=== PATIENT | female | born 1985 | race Caucasian/White ===

== ENCOUNTER 2021-03-26 11:10 | Observation (INO) | payer MEDICAID, SELFPAY ==
[2021-03-26] VITALS (7 sets, daily range): BP systolic 98–137; BP diastolic 63–87; PULSE 95–120; RESP 16–18; TEMP 36.6–36.9; O2SAT 96–99; BMI 30.9
--- NOTE | ~2021-03-26 | XR_ITS ---
EXAMINATION: XR CHEST CLINICAL INFORMATION: Chest pain with difficulty breathing COMPARISON: March 15, 2019 TECHNIQUE: AP portable view of the chest was obtained. FINDINGS: No significant abnormality is noted involving the heart, lungs, mediastinum, bony thorax or soft tissues. XR/XR chest 1V IMPRESSION: No acute disease.
--- NOTE | ~2021-03-26 | CT_ITS ---
EXAMINATION: CT ANGIOGRAM OF THE CHEST WITH AND WITHOUT CONTRAST (CT PULMONARY ANGIOGRAM FOR PE) CLINICAL INFORMATION: Chest pain, tachycardia, post J+J vaccine r/o PE COMPARISON: Chest radiograph 03/26/2021 TECHNIQUE: Prior to contrast administration, noncontrast localization images were obtained. Subsequently, multidetector volumetric imaging was performed from the thoracic inlet to below the diaphragms following the administration of 85 mL Omnipaque 350 intravenous contrast. Sagittal, coronal, and MIP oblique sagittal reformatted images were obtained on the CT workstation, uploaded to PACS, and reviewed. This CT examination was performed using dose optimization techniques as appropriate, variously including the following: *Automated exposure control *Adjustment of mA and/or kV according to patient size (this includes techniques or standardized protocols for targeted exams where dose is matched to indication/reason for exam; i.e. extremities or head) *Use of iterative reconstruction technique Total exam dose-length product 288 mGy-cm FINDINGS: QUALITY OF STUDY/CONTRAST BOLUS: Satisfactory. PULMONARY ARTERIES: No central or segmental pulmonary emboli. THORACIC AORTA: No aneurysm or dissection. LUNG: The lungs are clear. There is no pneumothorax, airspace consolidation, or mass. The central airways are clear. No endobronchial lesion or bronchiectasis. PLEURA: No pleural effusion or pleural thickening. MEDIASTINUM: Normal heart size. No pericardial effusion. No hilar or mediastinal lymphadenopathy. No evidence of septal bowing or right heart strain. CHEST WALL/AXILLA: No axillary or internal mammary lymphadenopathy. OSSEOUS STRUCTURES: No acute or suspicious osseous abnormality. UPPER ABDOMEN: Unremarkable. No reflux of contrast into the hepatic veins to suggest elevated right heart pressures. CT/CT angio chest PE protocol IMPRESSION: 1. No pulmonary embolism. No thoracic aortic dissection. 2. Lungs clear. No pneumothorax, infiltrate, or effusion. VTE: negative
--- NOTE | ~2021-03-26 | CT_ITS ---
EXAMINATION: CT ABDOMEN AND PELVIS WITH CONTRAST CLINICAL INFORMATION: Pain. History of multiple intussusceptions COMPARISON: None TECHNIQUE: Multidetector volumetric images were obtained from the superior aspect of the liver through the pubic symphysis following administration 85 mL of Omnipaque 350 intravenous contrast. Sagittal and coronal reformatted images were obtained on the technologist's workstation. Oral contrast: Yes This CT examination was performed using dose optimization techniques as appropriate, variously including the following: *Automated exposure control *Adjustment of mA and/or kV according to patient size (this includes techniques or standardized protocols for targeted exams where dose is matched to indication/reason for exam; i.e. extremities or head) *Use of iterative reconstruction technique DLP: 582 mGy-cm FINDINGS: LUNG BASES: The visualized lung bases are unremarkable. LIVER, GALLBLADDER, AND BILIARY TREE: The liver is normal in size, shape, and attenuation. No focal hepatic lesion or biliary ductal dilatation is present. The gallbladder has been removed. PANCREAS: Unremarkable. SPLEEN: Unremarkable. ADRENAL GLANDS: Unremarkable. KIDNEYS AND URETERS: There is a abnormal rotation of the right kidney with anterior lateral orientation of the renal pelvis. These are otherwise unremarkable. BLADDER: Unremarkable. GASTROINTESTINAL TRACT: There is mild diverticulosis of the colon. Small and large bowel is otherwise unremarkable. No evidence of dissection or obstruction is seen. The appendix is not identified and may been removed. The stomach is unremarkable. ABDOMINAL WALL: No significant hernia is appreciated. LYMPH NODES: Normal. VASCULAR: Unremarkable. PELVIC VISCERA: Unremarkable. OSSEOUS STRUCTURES: Unremarkable. CT/CT abdomen pelvis w IV con IMPRESSION: Diverticulosis of the colon. No evidence of diverticulitis, obstruction or intussusception. Abnormal rotation of the right kidney.
--- NOTE | 2021-03-26 11:24 | ECG_ITS ---
Test Reason : CHEST PAIN Blood Pressure : / mmHG Vent. Rate : 102 BPM Atrial Rate : 102 BPM P-R Int : 150 ms QRS Dur : 074 ms QT Int : 358 ms P-R-T Axes : 047 025 029 degrees QTc Int : 466 ms Sinus tachycardia Otherwise normal ECG When compared with ECG of 15-MAR-2019 18:28, No significant change was found Referred By: Generic ED Physician Electronically Signed By:DAGOBERTO HARO MD
--- NOTE | 2021-03-26 11:39 | ED_ITS ---
HPI - Chest Pain General Chief Complaint: Chest Pain Stated Complaint: Chest painleg pain Time Seen by Provider: 03/26/21 11:39 Source: patient Mode of arrival: ambulatory Limitations: no limitations History of Present Illness HPI narrative: 36 yo female with complicated hx but very convoluted involving anxiety, depression, intussusception of the bowels and possible CAD vs SVT - I cannot get records on her phone hx of all of this back in [place] she states she went to [facility] yesterday and cannot even talk about it that is how terrible it was - records being requested she reports 40lb weight gain, chest pain, not on any medications anymore, states she used to be well controlled with a good pain regimen, patient is difficult to follow at times MD complaint: chest pain and other (abdominal pain) Onset (ago): week(s) (4) Timing of current episode: episodic Prior episodes: Yes Onset: during rest and during exertion Pain location: left chest Pain radiation: neck Severity: moderate Quality: sharp Relieving factors: nothing Exacerbating factors: inspiration and movement Context: other (J+J vaccine) Associated symptoms: nausea and other (abdominal pain, weight gain, constipation) Treatment prior to arrival: none Related Data Home Medications Medication Instructions Recorded Confirmed albuterol sulfate [Ventolin HFA] 1 - 2 puff INHALATION Q4-6H PRN 03/26/21 03/26/21 citalopram 1 tab PO DAILY 03/26/21 03/26/21 clonazepam 0.5 mg PO TID PRN 03/26/21 03/26/21 fluticasone propionate 2 spray INTRANASAL DAILY 03/26/21 03/26/21 ibuprofen 600 mg PO TIDWM 03/26/21 03/26/21 ondansetron HCl [Zofran] 4 mg PO Q6H PRN 03/26/21 03/26/21 pantoprazole [Protonix] 40 mg PO BID@0630,1630 03/26/21 03/26/21 Allergies Allergy/AdvReac Type Severity Reaction Status Date / Time azithromycin [AZITHROMYCIN] Allergy Unknown UNKNOWN Unverified 05/23/20 19:42 Sulfa (Sulfonamide Allergy Unknown UNKNOWN Unverified 05/23/20 19:42 Antibiotics) [SULFA (SULFONAMIDE ANTIBIOTICS)] sulfamethoxazole Allergy Unknown UNKNOWN Unverified 05/23/20 19:42 [From BACTRIM] trimethoprim [From BACTRIM] Allergy Unknown UNKNOWN Unverified 05/23/20 19:42 morphine Allergy Difficulty Verified 03/26/21 11:23 Breathing Review of Systems Review of Systems: Constitutional : No Weight loss, No Fever, No Chills ENT/Mouth : No sore throat, No Rhinorrhea Eyes: No Swelling, No Redness Cardiovascular : pos Chest Pain, pos SOB, NoEdema Respiratory : No Cough, No Sputum, No Wheezing Gastrointestinal : Positive Nausea, Positive Vomiting, no Diarrhea, positive abdominal Pain, No Hematochezia, No Melena Genitourinary : No Dysuria, No Urinary Frequency, No Hematuria, No Urgency Musculoskeletal : No joint pain, No Myalgias, No Joint Swelling Skin : No Skin Lesions, No rash Neuro : No Weakness, No Numbness, No Dizziness, No Headache Psych : No Anxiety/Panic, No Depression Heme/Lymph: No Bruising, No Lymphadenopathy Endocrine : No Polyuria, No Polydipsia All other systems reviewed and are negative. [facility] Past Medical History Attestation statement: The following information was validated with the patient. Medical History Asthma Gastroparesis Hypertension Intussusception Surgical History History of appendectomy History of cholecystectomy Social History Social History (Updated 03/26/21 @ 12:38 by Janette Resendez DO) Use of substances other than those prescribed or required for medical reasons: No Advance Directives: No Advance Directives Information Provided: Yes Patient : No Physical Exam Vital Signs: Vital Signs: Last Vital Signs Temp 98.4 F 03/26/21 12:13 Pulse 102 H 03/26/21 14:49 Resp 16 03/26/21 14:49 BP 137/87 03/26/21 14:49 Pulse Ox 96 03/26/21 14:49 Body Mass Index 30.9 Appearance: Alert. Oriented X3. No acute distress. Anxious Eyes: Pupils equal, round and reactive to light. ENT: Pharynx normal. Neck: Normal inspection. Neck supple. CVS: Normal heart rate and rhythm. Pulses normal. Respiratory: No respiratory distress. Breath sounds normal. Abdomen: Soft and moderate ttp in epigastric area no rebound or guarding Skin: Skin warm and dry. Normal skin color. Normal skin turgor. Extremities: No lower extremity edema. No calf ttp Neuro: Oriented X 3. No motor deficit. No sensory deficit. Course Course Course Narrative: review of medical history of cyrus no CAD history did have intussusception [facility] - ED notes yesterday, keith was throwing herself on the floor, given LR, 2mg ativan, she became aggressive with staff demanding pain medications patient left the ED after very aggressive interaction with staff. trop elevated, infl markers ordered, PO asa ordered, repeatedly asking for pain medications, requesting TALHA for cocaine abuse given troponin, will repeat in 2 hours and consult cardiology infl markers are up could by myocarditis - message sent to Cardiology trop was negative at [facility] yesterday refusing CT scan until she gets more pain medications, at this time her pain is whole body there is no reason she cannot get images obtained to r/o serious pathology she has been playing on her phone in no distress + for amphetamines but I do not see anything on her med rec that would cause this CT scan of abdomen negative, given oral tylenol and oxycodone for body pain - aware since imaging is negative at this time there is no indication for IV dilaudid patient seemed agreeable to this, the pain is all over but she seems okay and is in no distress, refusing oral medications, only asking for IV pain medications Cardiology recommends ECHO in AM - NSAIDs, patient aware and agrees, aware she is likely not going to receive IV dilaudid for body pain while admitted as well, requesting klonopin MDM - Chest Pain MDM Narrative Medical decision making narrative: 36 yo female with complicated hx but very convoluted involving anxiety, depression, intussusception of the bowels and possible CAD vs SVT - I cannot get records on her phone hx of all of this back in [place] she states she went to [facility] yesterday and cannot even talk about it that is how terrible it was - records being requested she reports 40lb weight gain, chest pain, not on any medications anymore, states she used to be well controlled with a good pain regimen, patient is difficult to follow at times given the degree of complaints and convoluted pmh will obtain labs, CT abdomen for mass/obstruction, CTA for PE, given IV ativan for anxiety though she is requesting pain medications as well but cannot take NSAIDs or morphine, dispo per results and findings, also attempting to get prior medical records I did go through her [place] patient portal with her and at no time did she have documentation of CAD or a chest coronary CTA. Lab Data Result diagrams: 03/26/21 11:54 03/26/21 11:54 Labs: Lab Results 03/26/21 03/26/21 03/26/21 Range/Units 11:54 11:54 11:54 WBC 14.2 H (4.8-10.8) X10*3/uL RBC 4.25 (4.20-5.50) X10*6/uL Hgb 12.2 (12.0-16.0) g/dl Hct 37.8 (37-47) % MCV 88.9 (80-98) fL MCH 28.7 (27.0-33.0) pg MCHC 32.3 (31.0-35.0) g/dl RDW 14.4 (11.0-16.0) % Plt Count 423 H (160-400) X10*3/uL MPV 9.1 L (9.4-12.3) fL Immature Gran % (Auto) 0.9 H (0.0-0.4) % Neut % (Auto) 67.6 (45-73) % Lymph % (Auto) 23.5 (20-40) % [place] % (Auto) 6.2 (2-11) % Eos % (Auto) 1.3 (0-4) % Baso % (Auto) 0.5 (0-2) % Lymph # (Auto) 3.4 (1.2-4.9) X10*3/uL [place] # (Auto) 0.9 (0.1-1.2) X10*3/uL Eos # (Auto) 0.2 (0.0-0.4) X10*3/uL Baso # (Auto) 0.1 (0.0-0.2) X10*3/uL Abs Immat Gran (auto) 0.13 H (0.00-0.03) X10*3/uL Absolute Neuts (auto) 9.6 H (2.0-8.3) X10*3/uL Absolute Nucleated RBC 0.000 (0.0-0.012) X10*3/uL Nucleated RBC % (auto) 0.0 (0.0-0.2) /100WBC ESR (0-20) MM/HR D-Dimer NG/ML Sodium 138 (135-145) mmol/L Potassium 4.0 (3.3-5.1) mmol/L Chloride 99 (96-108) mmol/L Carbon Dioxide 29 (22-29) mmol/L Anion Gap 14 (12-20) BUN 8 L (9-16) mg/dL Creatinine 0.85 (0.5-1.4) mg/dL Estim Creat Clear Calc 92.7 Estimated GFR > 60 Random Glucose 95 (60-115) mg/dL Calcium 9.7 (8.4-10.2) mg/dL Magnesium 1.9 (1.6-2.6) mg/dL Total Bilirubin 0.2 (0.0-1.0) mg/dL Direct Bilirubin < 0.2 (0.0-0.5) mg/dL AST 23 (5-31) U/L ALT 27 (0-31) U/L Alkaline Phosphatase 106 (39-117) U/L Total Creatine Kinase 381 H (26-140) U/L Troponin I High Sens 98.9 H* (<3.5-17.0) ng/L C-Reactive Protein 1.72 H (< or = 0.50) mg/dL Total Protein 7.6 (6.5-8.0) g/dL Albumin 4.2 (3.5-5.0) g/dL Lipase 23 (8-78) U/L Urine Color Urine Appearance Urine pH (5.0-8.0) Ur Specific Brimson (1.005-1.025) Urine Protein (NEG-TRACE) MG/DL Urine Glucose (UA) (NEG) MG/DL Urine Ketones (NEG) MG/DL Urine Blood (NEG) Urine Nitrite (NEG) Ur Leukocyte Esterase (NEG) Urine Test (NEGATIVE) Urine Opiates Screen (Not Detect) Ur Barbiturates Screen (Not Detect) Ur Phencyclidine Scrn (Not Detect) Ur Amphetamines Screen (Not Detect) U Benzodiazepines Scrn (Not Detect) Urine Cocaine Screen (Not Detect) U Marijuana (THC) Screen (Not Detect) COVID-19 (MARILIN) (Negative) COVID-19 Clin Com 03/26/21 03/26/21 03/26/21 Range/Units 11:54 11:54 13:30 WBC (4.8-10.8) X10*3/uL RBC (4.20-5.50) X10*6/uL Hgb (12.0-16.0) g/dl Hct (37-47) % MCV (80-98) fL MCH (27.0-33.0) pg MCHC (31.0-35.0) g/dl RDW (11.0-16.0) % Plt Count (160-400) X10*3/uL MPV (9.4-12.3) fL Immature Gran % (Auto) (0.0-0.4) % Neut % (Auto) (45-73) % Lymph % (Auto) (20-40) % [place] % (Auto) (2-11) % Eos % (Auto) (0-4) % Baso % (Auto) (0-2) % Lymph # (Auto) (1.2-4.9) X10*3/uL [place] # (Auto) (0.1-1.2) X10*3/uL Eos # (Auto) (0.0-0.4) X10*3/uL Baso # (Auto) (0.0-0.2) X10*3/uL Abs Immat Gran (auto) (0.00-0.03) X10*3/uL Absolute Neuts (auto) (2.0-8.3) X10*3/uL Absolute Nucleated RBC (0.0-0.012) X10*3/uL Nucleated RBC % (auto) (0.0-0.2) /100WBC ESR 25 H (0-20) MM/HR D-Dimer < 200 NG/ML Sodium (135-145) mmol/L Potassium (3.3-5.1) mmol/L Chloride (96-108) mmol/L Carbon Dioxide (22-29) mmol/L Anion Gap (12-20) BUN (9-16) mg/dL Creatinine (0.5-1.4) mg/dL Estim Creat Clear Calc Estimated GFR Random Glucose (60-115) mg/dL Calcium (8.4-10.2) mg/dL Magnesium (1.6-2.6) mg/dL Total Bilirubin (0.0-1.0) mg/dL Direct Bilirubin (0.0-0.5) mg/dL AST (5-31) U/L ALT (0-31) U/L Alkaline Phosphatase (39-117) U/L Total Creatine Kinase (26-140) U/L Troponin I High Sens (<3.5-17.0) ng/L C-Reactive Protein (< or = 0.50) mg/dL Total Protein (6.5-8.0) g/dL Albumin (3.5-5.0) g/dL Lipase (8-78) U/L Urine Color YELLOW Urine Appearance CLEAR Urine pH 6.5 (5.0-8.0) Ur Specific Brimson <= 1.005 (1.005-1.025) Urine Protein NEG (NEG-TRACE) MG/DL Urine Glucose (UA) NEG (NEG) MG/DL Urine Ketones NEG (NEG) MG/DL Urine Blood NEG (NEG) Urine Nitrite NEG (NEG) Ur Leukocyte Esterase NEG (NEG) Urine Test (NEGATIVE) Urine Opiates Screen (Not Detect) Ur Barbiturates Screen (Not Detect) Ur Phencyclidine Scrn (Not Detect) Ur Amphetamines Screen (Not Detect) U Benzodiazepines Scrn (Not Detect) Urine Cocaine Screen (Not Detect) U Marijuana (THC) Screen (Not Detect) COVID-19 (MARILIN) (Negative) COVID-19 Clin Com 03/26/21 03/26/21 03/26/21 Range/Units 13:31 13:31 14:45 WBC (4.8-10.8) X10*3/uL RBC (4.20-5.50) X10*6/uL Hgb (12.0-16.0) g/dl Hct (37-47) % MCV (80-98) fL MCH (27.0-33.0) pg MCHC (31.0-35.0) g/dl RDW (11.0-16.0) % Plt Count (160-400) X10*3/uL MPV (9.4-12.3) fL Immature Gran % (Auto) (0.0-0.4) % Neut % (Auto) (45-73) % Lymph % (Auto) (20-40) % [place] % (Auto) (2-11) % Eos % (Auto) (0-4) % Baso % (Auto) (0-2) % Lymph # (Auto) (1.2-4.9) X10*3/uL [place] # (Auto) (0.1-1.2) X10*3/uL Eos # (Auto) (0.0-0.4) X10*3/uL Baso # (Auto) (0.0-0.2) X10*3/uL Abs Immat Gran (auto) (0.00-0.03) X10*3/uL Absolute Neuts (auto) (2.0-8.3) X10*3/uL Absolute Nucleated RBC (0.0-0.012) X10*3/uL Nucleated RBC % (auto) (0.0-0.2) /100WBC ESR (0-20) MM/HR D-Dimer NG/ML Sodium (135-145) mmol/L Potassium (3.3-5.1) mmol/L Chloride (96-108) mmol/L Carbon Dioxide (22-29) mmol/L Anion Gap (12-20) BUN (9-16) mg/dL Creatinine (0.5-1.4) mg/dL Estim Creat Clear Calc Estimated GFR Random Glucose (60-115) mg/dL Calcium (8.4-10.2) mg/dL Magnesium (1.6-2.6) mg/dL Total Bilirubin (0.0-1.0) mg/dL Direct Bilirubin (0.0-0.5) mg/dL AST (5-31) U/L ALT (0-31) U/L Alkaline Phosphatase (39-117) U/L Total Creatine Kinase (26-140) U/L Troponin I High Sens 105.0 H* (<3.5-17.0) ng/L C-Reactive Protein (< or = 0.50) mg/dL Total Protein (6.5-8.0) g/dL Albumin (3.5-5.0) g/dL Lipase (8-78) U/L Urine Color Urine Appearance Urine pH (5.0-8.0) Ur Specific Brimson (1.005-1.025) Urine Protein (NEG-TRACE) MG/DL Urine Glucose (UA) (NEG) MG/DL Urine Ketones (NEG) MG/DL Urine Blood (NEG) Urine Nitrite (NEG) Ur Leukocyte Esterase (NEG) Urine Test NEGATIVE (NEGATIVE) Urine Opiates Screen Not Detected (Not Detect) Ur Barbiturates Screen Not Detected (Not Detect) Ur Phencyclidine Scrn Not Detected (Not Detect) Ur Amphetamines Screen POSITIVE H (Not Detect) U Benzodiazepines Scrn Not Detected (Not Detect) Urine Cocaine Screen Not Detected (Not Detect) U Marijuana (THC) Screen POSITIVE H (Not Detect) COVID-19 (MARILIN) (Negative) COVID-19 Clin Com 03/26/21 Range/Units 14:45 WBC (4.8-10.8) X10*3/uL RBC (4.20-5.50) X10*6/uL Hgb (12.0-16.0) g/dl Hct (37-47) % MCV (80-98) fL MCH (27.0-33.0) pg MCHC (31.0-35.0) g/dl RDW (11.0-16.0) % Plt Count (160-400) X10*3/uL MPV (9.4-12.3) fL Immature Gran % (Auto) (0.0-0.4) % Neut % (Auto) (45-73) % Lymph % (Auto) (20-40) % [place] % (Auto) (2-11) % Eos % (Auto) (0-4) % Baso % (Auto) (0-2) % Lymph # (Auto) (1.2-4.9) X10*3/uL [place] # (Auto) (0.1-1.2) X10*3/uL Eos # (Auto) (0.0-0.4) X10*3/uL Baso # (Auto) (0.0-0.2) X10*3/uL Abs Immat Gran (auto) (0.00-0.03) X10*3/uL Absolute Neuts (auto) (2.0-8.3) X10*3/uL Absolute Nucleated RBC (0.0-0.012) X10*3/uL Nucleated RBC % (auto) (0.0-0.2) /100WBC ESR (0-20) MM/HR D-Dimer NG/ML Sodium (135-145) mmol/L Potassium (3.3-5.1) mmol/L Chloride (96-108) mmol/L Carbon Dioxide (22-29) mmol/L Anion Gap (12-20) BUN (9-16) mg/dL Creatinine (0.5-1.4) mg/dL Estim Creat Clear Calc Estimated GFR Random Glucose (60-115) mg/dL Calcium (8.4-10.2) mg/dL Magnesium (1.6-2.6) mg/dL Total Bilirubin (0.0-1.0) mg/dL Direct Bilirubin (0.0-0.5) mg/dL AST (5-31) U/L ALT (0-31) U/L Alkaline Phosphatase (39-117) U/L Total Creatine Kinase (26-140) U/L Troponin I High Sens (<3.5-17.0) ng/L C-Reactive Protein (< or = 0.50) mg/dL Total Protein (6.5-8.0) g/dL Albumin (3.5-5.0) g/dL Lipase (8-78) U/L Urine Color Urine Appearance Urine pH (5.0-8.0) Ur Specific Brimson (1.005-1.025) Urine Protein (NEG-TRACE) MG/DL Urine Glucose (UA) (NEG) MG/DL Urine Ketones (NEG) MG/DL Urine Blood (NEG) Urine Nitrite (NEG) Ur Leukocyte Esterase (NEG) Urine Test (NEGATIVE) Urine Opiates Screen (Not Detect) Ur Barbiturates Screen (Not Detect) Ur Phencyclidine Scrn (Not Detect) Ur Amphetamines Screen (Not Detect) U Benzodiazepines Scrn (Not Detect) Urine Cocaine Screen (Not Detect) U Marijuana (THC) Screen (Not Detect) COVID-19 (MARILIN) Negative (Negative) COVID-19 Clin Com See Note Discharge Plan Discharge Clinical Impression: CRP elevated, Myalgia, Elevated troponin Patient Disposition: Admitted As Inpatient
[2021-03-26 12:02] LABS: MANUAL DIFF FLAG NO
[2021-03-26 12:03] LABS: Basophils Absolute Auto 0.1 X10*3/uL (0.0-0.2); Basophils Percent Auto 0.5 % (0-2); Eosinophils Absolute Auto 0.2 X10*3/uL (0.0-0.4); Eosinophils Percent Auto 1.3 % (0-4); Hematocrit 37.8 % (37-47); Hemoglobin 12.2 g/dl (12.0-16.0); Imm Gran Abs Auto 0.13 X10*3/uL (0.00-0.03); Imm Gran Pct Auto 0.9 % (0.0-0.4); Lymphocytes Absolute Auto 3.4 X10*3/uL (1.2-4.9); Lymphocytes Percent Auto 23.5 % (20-40); Mean Corpuscular HGB Conc 32.3 g/dl (31.0-35.0); Mean Corpuscular Hemoglobin 28.7 pg (27.0-33.0); Mean Corpuscular Volume 88.9 fL (80-98); Mean Platelet Volume 9.1 fL (9.4-12.3); Monocytes Absolute Auto 0.9 X10*3/uL (0.1-1.2); Monocytes Percent Auto 6.2 % (2-11); Neutrophils Absolute Auto 9.6 X10*3/uL (2.0-8.3); Neutrophils Percent Auto 67.6 % (45-73); Platelet Count 423 X10*3/uL (160-400); Red Blood Count 4.25 X10*6/uL (4.20-5.50); Red Cell Distribution Width 14.4 % (11.0-16.0); White Blood Count 14.2 X10*3/uL (4.8-10.8)
[2021-03-26 12:12] LABS: D Dimer < 200 NG/ML
[2021-03-26] MEDS: LORazepam 2 MG/ML VIAL IVPUSH (12:18)
[2021-03-26] MEDS: 0.9 % Sodium Chloride 1,000 ML 999 ML IVCONT (12:18)
[2021-03-26] MEDS: ondansetron HCL 4 MG/2 ML VIAL IVPUSH (12:25)
[2021-03-26 12:33] LABS: Anion Gap 14 (12-20); Blood Urea Nitrogen 8 mg/dL (9-16); Calcium 9.7 mg/dL (8.4-10.2); Carbon Dioxide 29 mmol/L (22-29); Chloride 99 mmol/L (96-108); Creatinine Clr Calc Pharmacy 92.7; Estimated Glomerular Filt Rate > 60; Glucose Random 95 mg/dL (60-115); Magnesium 1.9 mg/dL (1.6-2.6); Sodium 138 mmol/L (135-145)
[2021-03-26 13:05] LABS: Alanine Aminotransferase 27 U/L (0-31); Albumin Level 4.2 g/dL (3.5-5.0); Alkaline Phosphatase 106 U/L (39-117); Aspartate Amino Transferase 23 U/L (5-31); Bilirubin Direct < 0.2 mg/dL (0.0-0.5); Bilirubin Total 0.2 mg/dL (0.0-1.0); Lipase 23 U/L (8-78); Total Protein 7.6 g/dL (6.5-8.0)
[2021-03-26 13:08] LABS: Troponin-I High Sensitivity 98.9 ng/L (<3.5-17.0)
[2021-03-26] MEDS: Aspirin 81 MG TAB.CHEW 162 MG PO (13:27)
[2021-03-26] MEDS: HYDROmorphone HCl 0.5 MG/0.5 ML SYRINGE IVPUSH (13:32)
[2021-03-26 13:37] LABS: C Reactive Protein 1.72 mg/dL (< or = 0.50)
[2021-03-26 13:47] LABS: Glucose Urine UA NEG (NEG); Leukocyte Esterase Urine NEG (NEG); Nitrite Urine NEG (NEG); PH 6.5 (5.0-8.0); Specific Gravity - Urine <= 1.005 (1.005-1.025); Urine Blood NEG (NEG); Urine Ketones NEG (NEG); Urine Protein NEG (NEG-TRACE)
[2021-03-26 14:10] LABS: Erythrocyte Sedimentation Rate 25 MM/HR (0-20)
[2021-03-26 14:13] LABS: Amphetamine Screen Urine POSITIVE (Not Detect); Barbiturates, Urine Not Detected (Not Detect); Benzodiazepines Screen Urine Not Detected (Not Detect); Cannabinoid Screen Urine POSITIVE (Not Detect); Cocaine Screen Urine Not Detected (Not Detect); Opiate Screen Urine Not Detected (Not Detect); Phencyclidine Screen Urine Not Detected (Not Detect)
[2021-03-26] MEDS: iohexoL 350 MG/ML 100 ML INFUS..BTL IV (14:49)
--- NOTE | 2021-03-26 15:01 | PHA.MEDREC ---
Pharmacy Consult ? Medication Reconciliation Pharmacy has completed the medication reconciliation. Most of the meds reported by the PT were prescribed prior to her moving to this area.
[2021-03-26] MEDS: Acetaminophen 325 MG TABLET 650 MG PO (15:22)
[2021-03-26] MEDS: oxyCODONE HCl Immed Release 5 MG TABLET 10 MG PO (15:22)
[2021-03-26 15:24] LABS: Appearance Urine CLEAR; Color Urine YELLOW
[2021-03-26 15:32] LABS: COVID-19 Test Negative (Negative); IDNOW Serial# 08D9AD1C
[2021-03-26 15:38] LABS: UPreg QC Valid YES; Urine Pregnancy NEGATIVE (NEGATIVE)
--- NOTE | 2021-03-26 16:31 | P.HPHOSP_ITS ---
History of Present Illness Date of Service: 03/26/21 history obtained from record reviewed from [facility], speaking to patient and discussin with ED provider. According to the record she presented to [facility] this morning with the following naration 36-year-old female with history of gastroparesis, prior diverticulitis, 2 prior episodes of intussusception status post diagnostic laparoscopy, anxiety, depression presenting to the ED with multiple complaints. States she got the J&J vaccine approximately 7 weeks ago and since then has had multiple problems including a 40 pound weight gain, constant nausea and vomiting, a constant fee ling as though her legs are going to explode that worsens when she walks, worsening back pain that requires people to pull the knots out , constant sweating anytime she tries to do anything and dehydration. Patient is significantly tearful during interview and stating multiple times that she does not want to be here but her children made her come. Is also endorsing continued shortness of breath as well as chest pressure and at times feels as though she gets numbness and tingling in both upper extremities into her fingers there is associated with her shaking all over. She denies fevers, cough, headache, vision changes. No recent sick contacts, immobilization, surgery or travel. While wor k up was underwent in ED at [facility], she became increasing agitated, yelling and screaming and demanding pain medication and ultimately left agains medical advise and presents to our ED with similar story that she has been having body ache, back and feeling that her legs want got give oout.. She has gained significantly weight recently, that she feels short of breath. WBC is 14, CRP is high, along with ESR. Highly sensitive troponin I is 100 and repeat unchanged, ECG shows mild sinus tachyardia otherwise, unremarkable, CXR, CT of chest and CT of abdomen unremarkable. She is been observed due to elevated troponin. . Review of Systems Review of Systems: Gen: no fever Resp: + sob, no cough CV: no chest, no LANG, no leg edema GI: No n/v, no abd pain Neuro: No confusion Back pain, Yes all other systems are reviewed and are negative [facility] Medical History Asthma Gastroparesis Hypertension Intussusception Migraine headache Surgical History History of appendectomy History of cholecystectomy Social History Household Members: Children Housing: Other Housing Other:: intermediate Do you presently have visiting nurse or other home services: No Patient Tobacco Use Status: Current everyday Tobacco user Tobacco use type: Cigarette Cigarettes Per Day: 10 Substance Use Type: Marijuana service: No Current occupational status: employed Meds Allergies Allergy/AdvReac Type Severity Reaction Status Date / Time azithromycin [AZITHROMYCIN] Allergy Unknown UNKNOWN Unverified 05/23/20 19:42 Sulfa (Sulfonamide Allergy Unknown UNKNOWN Unverified 05/23/20 19:42 Antibiotics) [SULFA (SULFONAMIDE ANTIBIOTICS)] sulfamethoxazole Allergy Unknown UNKNOWN Unverified 05/23/20 19:42 [From BACTRIM] trimethoprim [From BACTRIM] Allergy Unknown UNKNOWN Unverified 05/23/20 19:42 morphine Allergy Difficulty Verified 03/26/21 11:23 Breathing Active Medications: Current Medications Generic Name Dose Route Start Last Admin Trade Name Freq PRN Reason Stop Dose Admin Pharmacy Consult 1 each 03/26/21 14:16 Consult Rx Perform Med Rec MISCELLANE ONCE PRN Consult order Home Medications Medication Instructions Recorded Confirmed Last Taken Type albuterol sulfate [Ventolin HFA] 1 - 2 puff INHALATION Q4-6H PRN 03/26/21 03/26/21 Unknown History citalopram 1 tab PO DAILY 03/26/21 03/26/21 03/26/21 History clonazepam 0.5 mg PO TID PRN 03/26/21 03/26/21 Unknown History fluticasone propionate 2 spray INTRANASAL DAILY 03/26/21 03/26/21 Unknown History ibuprofen 600 mg PO TIDWM 03/26/21 03/26/21 03/26/21 History ondansetron HCl [Zofran] 4 mg PO Q6H PRN 03/26/21 03/26/21 Unknown History pantoprazole [Protonix] 40 mg PO BID@0630,1630 03/26/21 03/26/21 03/26/21 History Physical Exam Vital Signs and Narrative: Vital Signs: Last Vital Signs Temp 98.4 F 03/26/21 12:13 Pulse 102 H 03/26/21 14:49 Resp 16 03/26/21 14:49 BP 137/87 03/26/21 14:49 Pulse Ox 96 03/26/21 14:49 Body Mass Index 30.9 Const: Other: Constitutional Awake and Alert, No apparent distress HEENT no lymphadenopathy Neck Supple, No lymphadenopathy Cardiovascular RRR, No M/R/G, S1 S2, No S3 S4, No pedal edema Respiratory Lungs clear, No respiratory distress Gastrointestinal Non tender, Non-distended Skin No rash Neurological Alert & oriented x3 Psychological Appropriate affect, no weakness in the limbs Results Labs CBC and Chem 7: 03/27/21 09:07 03/26/21 11:54 Labs: Laboratory Results - last 24 hr 03/26/21 03/26/21 03/26/21 11:54 11:54 11:54 MCV 88.9 MCH 28.7 MCHC 32.3 RDW 14.4 Plt Count 423 H MPV 9.1 L Immature Gran % (Auto) 0.9 H Neut % (Auto) 67.6 Lymph % (Auto) 23.5 [place] % (Auto) 6.2 Eos % (Auto) 1.3 Baso % (Auto) 0.5 Lymph # (Auto) 3.4 [place] # (Auto) 0.9 Eos # (Auto) 0.2 Baso # (Auto) 0.1 Abs Immat Gran (auto) 0.13 H Absolute Neuts (auto) 9.6 H Absolute Nucleated RBC 0.000 Nucleated RBC % (auto) 0.0 ESR D-Dimer Anion Gap 14 Estim Creat Clear Calc 92.7 Estimated GFR > 60 Random Glucose 95 Calcium 9.7 Magnesium 1.9 Total Bilirubin 0.2 Direct Bilirubin < 0.2 AST 23 ALT 27 Alkaline Phosphatase 106 Total Creatine Kinase 381 H Troponin I High Sens 98.9 H* C-Reactive Protein 1.72 H Total Protein 7.6 Albumin 4.2 Lipase 23 Urine Color Urine Appearance Urine pH Ur Specific [place] Urine Protein Urine Glucose (UA) Urine Ketones Urine Blood Urine Nitrite Ur Leukocyte Esterase Urine Test Urine Opiates Screen Ur Barbiturates Screen Ur Phencyclidine Scrn Ur Amphetamines Screen U Benzodiazepines Scrn Urine Cocaine Screen U Marijuana (THC) Screen COVID-19 (MARILIN) COVID-19 Clin Com 03/26/21 03/26/21 03/26/21 11:54 11:54 13:30 MCV MCH MCHC RDW Plt Count MPV Immature Gran % (Auto) Neut % (Auto) Lymph % (Auto) [place] % (Auto) Eos % (Auto) Baso % (Auto) Lymph # (Auto) [place] # (Auto) Eos # (Auto) Baso # (Auto) Abs Immat Gran (auto) Absolute Neuts (auto) Absolute Nucleated RBC Nucleated RBC % (auto) ESR 25 H D-Dimer < 200 Anion Gap Estim Creat Clear Calc Estimated GFR Random Glucose Calcium Magnesium Total Bilirubin Direct Bilirubin AST ALT Alkaline Phosphatase Total Creatine Kinase Troponin I High Sens C-Reactive Protein Total Protein Albumin Lipase Urine Color YELLOW Urine Appearance CLEAR Urine pH 6.5 Ur Specific [place] <= 1.005 Urine Protein NEG Urine Glucose (UA) NEG Urine Ketones NEG Urine Blood NEG Urine Nitrite NEG Ur Leukocyte Esterase NEG Urine Test Urine Opiates Screen Ur Barbiturates Screen Ur Phencyclidine Scrn Ur Amphetamines Screen U Benzodiazepines Scrn Urine Cocaine Screen U Marijuana (THC) Screen COVID-19 (MARILIN) COVID-Instant AV 03/26/21 03/26/21 03/26/21 13:31 13:31 14:45 MCV MCH MCHC RDW Plt Count MPV Immature Gran % (Auto) Neut % (Auto) Lymph % (Auto) [place] % (Auto) Eos % (Auto) Baso % (Auto) Lymph # (Auto) [place] # (Auto) Eos # (Auto) Baso # (Auto) Abs Immat Gran (auto) Absolute Neuts (auto) Absolute Nucleated RBC Nucleated RBC % (auto) ESR D-Dimer Anion Gap Estim Creat Clear Calc Estimated GFR Random Glucose Calcium Magnesium Total Bilirubin Direct Bilirubin AST ALT Alkaline Phosphatase Total Creatine Kinase Troponin I High Sens 105.0 H* C-Reactive Protein Total Protein Albumin Lipase Urine Color Urine Appearance Urine pH Ur Specific [place] Urine Protein Urine Glucose (UA) Urine Ketones Urine Blood Urine Nitrite Ur Leukocyte Esterase Urine Test NEGATIVE Urine Opiates Screen Not Detected Ur Barbiturates Screen Not Detected Ur Phencyclidine Scrn Not Detected Ur Amphetamines Screen POSITIVE H U Benzodiazepines Scrn Not Detected Urine Cocaine Screen Not Detected U Marijuana (THC) Screen POSITIVE H COVID-19 (MARILIN) COVID-19 [facility] Com 03/26/21 14:45 MCV MCH MCHC RDW Plt Count MPV Immature Gran % (Auto) Neut % (Auto) Lymph % (Auto) [place] % (Auto) Eos % (Auto) Baso % (Auto) Lymph # (Auto) [place] # (Auto) Eos # (Auto) Baso # (Auto) Abs Immat Gran (auto) Absolute Neuts (auto) Absolute Nucleated RBC Nucleated RBC % (auto) ESR D-Dimer Anion Gap Estim Creat Clear Calc Estimated GFR Random Glucose Calcium Magnesium Total Bilirubin Direct Bilirubin AST ALT Alkaline Phosphatase Total Creatine Kinase Troponin I High Sens C-Reactive Protein Total Protein Albumin Lipase Urine Color Urine Appearance Urine pH Ur Specific [place] Urine Protein Urine Glucose (UA) Urine Ketones Urine Blood Urine Nitrite Ur Leukocyte Esterase Urine Test Urine Opiates Screen Ur Barbiturates Screen Ur Phencyclidine Scrn Ur Amphetamines Screen U Benzodiazepines Scrn Urine Cocaine Screen U Marijuana (THC) Screen COVID-19 (MARILIN) Negative COVID-19 Clin Com See Note Imaging Radiologist's Impressions: Impressions Chest X-Ray 03/26/21 11:24 IMPRESSION: No acute disease. Abdomen/Pelvis CT 03/26/21 12:09 IMPRESSION: Diverticulosis of the colon. No evidence of diverticulitis, obstruction or intussusception. Abnormal rotation of the right kidney. Chest CTA 03/26/21 12:09 IMPRESSION: 1. No pulmonary embolism. No thoracic aortic dissection. 2. Lungs clear. No pneumothorax, infiltrate, or effusion. VTE: negative Assessment and Plan (1) CRP elevated: Status: Acute (2) Elevated troponin: Status: Acute 36 year old female with non-specicif symptoms of diffuse myalgia associated with elevate CRP, ESR and slight increase in troponin I, also c/o back with legs given out plan /recommend Admit for further investigation, hydrate, repeat troponin I, her presentation seem like viral syndrome causing myalgia, CPK is not very high, there are no sings of infection, CXR, CT chest and abdomen Ok . Repeat troponin I, Echo tomorrow, cardiology consult in AM. Quality Stroke Does the patient have a stroke diagnosis?: No VTE Prior VTE?: No VTE Risk Level:: Medical - moderate - high VTE Device Contraindication: N/A - Device Ordered VTE Drug Contraindication: N/A - Med Ordered
[2021-03-26] MEDS: clonazePAM 1 MG TABLET PO (16:41)
[2021-03-26] MEDS: Dextrose 5 % and 0.45 % NaCl 1,000 ML 100 ML IVCONT (18:17)
[2021-03-26] MEDS: oxyCODONE HCl Immed Release 5 MG TABLET PO (20:43)
--- NOTE | 2021-03-26 22:02 | MHC.CM.PN ---
Met with patient. Admitted to observation. Bed assignment pending. Pt has Medicaid insurance. Pt has 3 children. 19 year old is caring for siblings. Pt lives with children. Has no DME and no services. D/C plan is home without services. Pt to arrange transportation home. CM to follow for d/c needs.
--- NOTE | 2021-03-27 | ECG_ITS ---
Test Reason : CP Blood Pressure : / mmHG Vent. Rate : 114 BPM Atrial Rate : 114 BPM P-R Int : 142 ms QRS Dur : 078 ms QT Int : 340 ms P-R-T Axes : 052 047 031 degrees QTc Int : 468 ms Sinus tachycardia Otherwise normal ECG When compared with ECG of 26-MAR-2021 12:12, T wave amplitude has increased in Anterior leads Referred By: Nestor Tillman Electronically Signed By:DAGOBERTO HARO MD
[2021-03-27 01:08] VITALS: BP 151/98; PULSE 107; RESP 24; O2SAT 98
--- NOTE | 2021-03-27 01:08 | P.EN_ITS ---
Event Note Date of Service: 03/27/21 Event Note: Chest pain: Around 1:00 a.m. on 03/27/2021; patient had an episode of chest pain; patient took some comfortable; patient also noted to be very anxious. Given a dose of Ativan. EKG was nonischemic. Ordered repeat troponin; prior troponins are elevated at 105; patient has echocardiogram and cardiology consult already in place. Given her presentation, elevated CRP, high troponins, chest pain, body aches- concern for possible viral syndrome and myocarditis. Will continue to monitor on telemetry.
[2021-03-27] MEDS: LORazepam 0.5 MG TABLET PO (01:28)
--- NOTE | 2021-03-27 01:33 | PC.NURSE ---
THIS RN TO PTS BEDSIDE WHEN PT WAS HEARD YELLING AT THE PRIMARY NURSE TAKING CARE OF HER. PT WAS FOUND TO BE VERY ANXIOUS, STATING SHE WAS COVERED IN SWEAT BUT HER HAIR APPEARS TO BE WET THROUGHOUT IF SHE WET IT IN THE BATHROOM. PT IS UPSET OVER NOT BEING GIVEN MEDICATION FOR ANXIETY. PT WAS BEING EXPLAINED TO THE PATIENT THAT THIS WAS NOT ORDERED. BUT WAS VERY VERBALLY ABUSIVE/ACCUSATORY TO PRIMARY NURSE. PT REFUSING TO WEAR GOWN, INSTEAD WRAPPING IT AROUND HER LIKE A TOWEL. PT HAD MULTIPLE COMPLAINTS ABOUT HER CARE STATING THAT SHE COULD ONLY TAKE HER PAIN MEDS AND ATIVAN IV BECAUSE OTHERWISE HER BODY DOESN'T DIGEST THE MEDS THEY COME OUT WHOLE IN MY POOP
[2021-03-27 02:19] LABS: Troponin-I High Sensitivity 38.2 ng/L (<3.5-17.0)
[2021-03-27] MEDS: oxyCODONE HCl Immed Release 5 MG TABLET PO ×3 (03:26→14:13)
[2021-03-27] MEDS: clonazePAM 0.5 MG TABLET PO ×2 (03:27→08:33)
[2021-03-27] MEDS: Dextrose 5 % and 0.45 % NaCl 1,000 ML 100 ML IVCONT ×2 (03:30→11:39)
[2021-03-27 04:00] VITALS: BP 97/61; PULSE 84; RESP 16; O2SAT 96
[2021-03-27] MEDS: Acetaminophen 325 MG TABLET 650 MG PO (07:44)
--- NOTE | 2021-03-27 07:46 | PC.NURSE ---
attempted to call report
[2021-03-27 08:00] VITALS: BP 109/68; PULSE 81; RESP 17; TEMP 36; O2SAT 96
--- NOTE | 2021-03-27 08:30 | CA_ITS ---
Transthoracic Echocardiogram Patient (Last, First, Middle): Tamanna Funez, Gender: Female Date of : 1985 Age: 36 Procedure Date: 03/27/2021 Procedure Type: Transthoracic Echocardiogram Location: S3E Height: 162.56 cm Weight: 81.65 kg BSA: 1.87 m2 Heart Rate: bpm BP: 97 / 61 mmHg Workday Director: KATHRYN/DESIRAE Referring MD: Tristen Brenner MD Managing Broker: Mohit Harrison MD Symptoms: shortness of breath, high troponin Study Quality: Fair ECG Rhythm: Sinus Conclusions: - Essentially normal study Findings Left Ventricle Normal left ventricular size, thickness, and systolic function. The visually estimated ejection fraction is between 55-60%. Diastolic function is normal for age. Right Ventricle Normal right ventricular cavity size and systolic function. Atria Both atria are normal in size. There is no evidence of interatrial shunt. Aortic Valve Normal aortic valve structure and function. There is no aortic valve stenosis. There is no aortic valve regurgitation. Mitral Valve Normal mitral valve structure and function. There is trace mitral valve regurgitation. There is no mitral valve stenosis. Pulmonic Valve The pulmonic valve is likely normal. Tricuspid Valve Normal tricuspid valve structure. There is trace tricuspid valve regurgitation. The right ventricular systolic pressure is normal. The right ventricular systolic pressure is 31 mmHg. Normal right atrial pressure. There is no evidence of pulmonary hypertension. Great Vessels All visible segments of the aorta are normal in size. The pulmonary artery was not well visualized. Venous The inferior vena cava is normal in size and collapses greater than 50% with inspiration. Pericardium/Pleural There is no evidence of pericardial effusion. Prior Study Comparison No prior study available for comparison. Measurements 2D Linear Measurements IVSd: 1.02 0.6-0.9/0.6-1.0 cm LVIDd: 4.45 3.9-5.3/4.2-5.9 cm LVIDd Index: 2.38 2.4-3.2/2.2-3.1 cm/m2 LVIDs: 2.90 2.0-3.6 cm LVPWd: 1.04 0.7-1.1 cm Ao Root: 2.70 2.1-3.5 cm LA Diam: 4.10 2.7-3.8/3.0-4.0 cm LAIDs Index: 2.19 1.5-2.3 cm/m2 LV Mass: 195.28 67-162/88-224 g LV Mass Index: 104.43 43-95/49-115 g/m2 LVOT Diam: 2.00 3.0+(-)1.3 cm 2D Systolic Function EF 4C: 52.90 >55% EF 2C: 55.50 >55% EF BiP: 55.50 >55% Mitral Valve MV Pk E: 0.98 MV PK A: 0.93 MV Decel Time: 256.00 E/A: 1.10 E'Lateral: 6.31 E'Medial: 7.83 E/E' Med: 12.50 E/E' Lat: 15.50 PHT: 75.00 MVA PHT: 2.93 Decel [place]: 3.83 Aortic Valve AoV Pk Garrett: 1.69 AoV Mn Garrett: 1.10 AoV VTI: 0.36 AoV Pk Grad: 11.00 Aov Mn Grad: 6.00 TETO Cont.VTI: 2.03 LVOT LVOT Pk Garrett: 1.06 LVOT Mn Garrett: 0.74 LVOT VTI: 0.23 LVOT Pk Grad: 4.00 LVOT Mn Grad: 3.00 LVOT Diam: 2.00 LVOT Area: 3.14 Diastolic Function MV Pk E: 0.98 MV Pk A: 0.93 E/A: 1.10 E'Medial: 7.83 E/E' Med: 12.50 E' Laterial: 6.31 E/E' Lat: 15.50 Tricuspid Valve TR Pk Garrett: 2.65 TR Pk Grad: 28.00 RA Press: 3.00 RVSP: 31.00 Great Vessels Aorta Ao Root-2D: 2.70 2.0-3.7 cm Ao Asc: 3.00 2.1-3.4 cm Ao Arch: 2.90 Updated in Other Vendor System with Status of Final Mohit Harrison MD electronically signed on 03/27/2021 11:12:39 AM with status of Final
[2021-03-27 09:23] LABS: Hematocrit 34.7 % (37-47); Hemoglobin 11.2 g/dl (12.0-16.0); Mean Corpuscular HGB Conc 32.3 g/dl (31.0-35.0); Mean Corpuscular Hemoglobin 29.2 pg (27.0-33.0); Mean Corpuscular Volume 90.6 fL (80-98); Mean Platelet Volume 9.1 fL (9.4-12.3); Platelet Count 316 X10*3/uL (160-400); Red Blood Count 3.83 X10*6/uL (4.20-5.50); Red Cell Distribution Width 14.3 % (11.0-16.0); White Blood Count 10.1 X10*3/uL (4.8-10.8)
[2021-03-27 09:53] LABS: Troponin-I High Sensitivity 22.5 ng/L (<3.5-17.0)
--- NOTE | 2021-03-27 11:03 | PM.CNCAR ---
History of Present Illness History of Present Illness Date of Service: 03/27/21 Requesting physician: Tristen Brenner Consult reason: troponin elevation Chief complaint: Elevated troponin Narrative: I was requested to see Tamanna in cardiology consultation today for elevated troponin. She is a poor historian, says moved from [place] about a year and half ago and has not established with a primary care physician. She says she has prior history of hypertension but currently not on medication does not recall as to what she was taking before. She also has history of anxiety, depression. About a month ago she got COVID vaccine with [employer]. She came to the hospital with worsening shortness of breath as per her and felt she could not breathe. This is been going on for 2 weeks. She has prior history of asthma and thought that she was having asthma exacerbation. She also complains of some chest pressure as well as she got tingling in both upper extremities. She is very vague symptoms. Last night she developed chest pain again at which time EKG was negative. She had minimally elevated troponin which fior up to 108 and subsequently down trended again today. Today she has no chest pain but complains of neck pain radiating into her legs. The neck pain is on the right side of her neck. She is very agitated yesterday was demanding not cardiac medications. She had gone to emergency room at [facility] where she was very agitated and yelling for medications and subsequently left against medical advise and presented to emergency room here. In the emergency room here she is noted to have elevated white cell count, elevated CRP and ESR as well as troponin. EKG did not show any acute changes. CT of chest was negative for pulmonary embolism. She was admitted for further observation. Echocardiogram done today shows normal study with no significant regional wall motion abnormality or pericardial effusion Review of Systems Constitutional: Constitutional: Reports body ache(s), Reports chills, Reports lethargy and Reports malaise Cardiovascular: Cardiovascular: Reports chest pain, Denies edema, Denies leg edema, Denies lightheadedness, Denies Loss of Consciousness, Denies palpitations and Reports dyspnea Respiratory: Respiratory: Reports dyspnea and Reports wheezing Gastrointestinal: Gastrointestinal: Reports no additional gastrointestinal complaints Genitourinary: Genitourinary: Reports no additional female genitourinary complaints Musculoskeletal: Musculoskeletal: Reports myalgias Integumentary/Breasts: Skin/Breast: Reports system reviewed and no additional complaints, except as docu Neurologic: Reports system reviewed and no additional complaints, except as documented Psychiatric: Psychiatric: Reports anxiety Endocrine: Endocrine: Reports no additional endocrine complaints and Denies palpitations Hematologic/Lymphatic: Hematologic/Lymphatic: Reports no additional hematologic/lymphatic complaints Allergic/Immunologic: Allergic/Immunologic: Reports wheezing PMFSH Past Medical History Medical History Asthma Gastroparesis Hypertension Intussusception Migraine headache Surgical History Surgical History History of appendectomy History of cholecystectomy Social History Social History service: No Current occupational status: employed Meds Allergies Allergy/AdvReac Type Severity Reaction Status Date / Time azithromycin [AZITHROMYCIN] Allergy Unknown UNKNOWN Unverified 05/23/20 19:42 Sulfa (Sulfonamide Allergy Unknown UNKNOWN Unverified 05/23/20 19:42 Antibiotics) [SULFA (SULFONAMIDE ANTIBIOTICS)] sulfamethoxazole Allergy Unknown UNKNOWN Unverified 05/23/20 19:42 [From BACTRIM] trimethoprim [From BACTRIM] Allergy Unknown UNKNOWN Unverified 05/23/20 19:42 morphine Allergy Difficulty Verified 03/26/21 11:23 Breathing Active Medications: Current Medications Generic Name Dose Route Start Last Admin Trade Name Freq PRN Reason Stop Dose Admin Acetaminophen 650 mg 03/26/21 16:49 03/27/21 07:44 Acetaminophen 325 Mg Tablet PO 650 mg Q6H PRN Administration Pain, Mild (Pain Scale 1-3) Clonazepam 0.5 mg 03/27/21 01:04 03/27/21 08:33 Clonazepam 0.5 Mg Tablet PO 0.5 mg TID PRN Administration Anxiety Escitalopram Oxalate 20 mg 03/27/21 09:00 Escitalopram Oxalate 20 Mg Tablet PO DAILY MATEO Fluticasone Propionate 2 spray 03/27/21 09:00 Fluticasone Propionate Nasal 16 Gm [place] NOSTRIL-B DAILY MATEO Dextrose/Sodium Chloride 1,000 mls @ 100 mls/hr 03/26/21 17:00 03/27/21 03:30 D51/2ns IVCONT 100 mls/hr .Q10H MATEO Administration Melatonin 6 mg 03/26/21 16:49 Melatonin 3 Mg Tablet PO BEDTIME PRN Insomnia Oxycodone HCl 5 mg 03/26/21 16:55 03/27/21 08:33 Oxycodone Hcl Immed Release 5 Mg Tablet PO 5 mg Q6H PRN Administration Pain, Severe (Pain Scale 7-10) Pharmacy Consult 1 each 03/26/21 14:16 Consult Rx Perform Med Rec MISCELLANE ONCE PRN Consult order Sodium Chloride 3 ml 03/27/21 00:00 03/27/21 01:29 0.9 % Sodium Chloride Flush 3 Ml Syringe IVFLUSH Not Given QSHIFT [facility] Home Medications Medication Instructions Recorded Confirmed Last Taken Type albuterol sulfate [Ventolin HFA] 1 - 2 puff INHALATION Q4-6H PRN 03/26/21 03/26/21 Unknown History citalopram 1 tab PO DAILY 03/26/21 03/26/21 03/26/21 History clonazepam 0.5 mg PO TID PRN 03/26/21 03/26/21 Unknown History fluticasone propionate 2 spray INTRANASAL DAILY 03/26/21 03/26/21 Unknown History ibuprofen 600 mg PO TIDWM 03/26/21 03/26/21 03/26/21 History ondansetron HCl [Zofran] 4 mg PO Q6H PRN 03/26/21 03/26/21 Unknown History pantoprazole [Protonix] 40 mg PO BID@0630,1630 03/26/21 03/26/21 03/26/21 History Physical Exam Vital Signs: Vital Signs: Last Vital Signs Temp 96.8 F 03/27/21 08:00 Pulse 81 03/27/21 08:00 Resp 17 03/27/21 08:00 BP 109/68 03/27/21 08:00 Pulse Ox 96 03/27/21 08:00 Body Mass Index 30.9 Const: General: cooperative, comfortable, no acute distress, alert, awake and anxious Nutritional Appearance: overweight Orientation/consciousness: patient oriented x3 Limitations: no limitations HENMT: Head: Yes normocephalic and Yes atraumatic Neck: Neck: Yes trachea midline, Yes supple and Yes no JVD Resp: Effort & Inspection: normal respiratory effort Auscultation: clear to auscultation bilaterally Cardio: Jugular venous distension: no JVD Palpation: normal PMI Rate: regular rate Rhythm: regular rhythm Heart sounds: S1 normal heart sound present, S2 normal heart sound present, no click, no gallops, no murmurs and no rubs Peripheral pulses: Peripheral pulses 2+ throughout GI: Auscultation: normal bowel sounds Skin: General skin exam: no rashes or lesions noted Neuro: General: patient oriented x3 and no focal motor deficits Extrem: General: Yes no clubbing, cyanosis or edema Results Labs and Meds Result diagrams: 03/27/21 09:07 03/26/21 11:54 Lab results: Laboratory Results - last 24 hr 03/26/21 03/26/21 03/26/21 11:54 11:54 11:54 WBC 14.2 H RBC 4.25 Hgb 12.2 Hct 37.8 MCV 88.9 MCH 28.7 MCHC 32.3 RDW 14.4 Plt Count 423 H MPV 9.1 L Immature Gran % (Auto) 0.9 H Neut % (Auto) 67.6 Lymph % (Auto) 23.5 [place] % (Auto) 6.2 Eos % (Auto) 1.3 Baso % (Auto) 0.5 Lymph # (Auto) 3.4 [place] # (Auto) 0.9 Eos # (Auto) 0.2 Baso # (Auto) 0.1 Abs Immat Gran (auto) 0.13 H Absolute Neuts (auto) 9.6 H Absolute Nucleated RBC 0.000 Nucleated RBC % (auto) 0.0 ESR D-Dimer Sodium 138 Potassium 4.0 Chloride 99 Carbon Dioxide 29 Anion Gap 14 BUN 8 L Creatinine 0.85 Estim Creat Clear Calc 92.7 Estimated GFR > 60 Random Glucose 95 Calcium 9.7 Magnesium 1.9 Total Bilirubin 0.2 Direct Bilirubin < 0.2 AST 23 ALT 27 Alkaline Phosphatase 106 Total Creatine Kinase 381 H Troponin I High Sens 98.9 H* C-Reactive Protein 1.72 H Total Protein 7.6 Albumin 4.2 Lipase 23 Urine Color Urine Appearance Urine pH Ur Specific [place] Urine Protein Urine Glucose (UA) Urine Ketones Urine Blood Urine Nitrite Ur Leukocyte Esterase Urine Test Urine Opiates Screen Ur Barbiturates Screen Ur Phencyclidine Scrn Ur Amphetamines Screen U Benzodiazepines Scrn Urine Cocaine Screen U Marijuana (THC) Screen COVID-19 (MARILIN) COVID-19 Clin Com 03/26/21 03/26/21 03/26/21 11:54 11:54 13:30 WBC RBC Hgb Hct MCV MCH MCHC RDW Plt Count MPV Immature Gran % (Auto) Neut % (Auto) Lymph % (Auto) [place] % (Auto) Eos % (Auto) Baso % (Auto) Lymph # (Auto) [place] # (Auto) Eos # (Auto) Baso # (Auto) Abs Immat Gran (auto) Absolute Neuts (auto) Absolute Nucleated RBC Nucleated RBC % (auto) ESR 25 H D-Dimer < 200 Sodium Potassium Chloride Carbon Dioxide Anion Gap BUN Creatinine Estim Creat Clear Calc Estimated GFR Random Glucose Calcium Magnesium Total Bilirubin Direct Bilirubin AST ALT Alkaline Phosphatase Total Creatine Kinase Troponin I High Sens C-Reactive Protein Total Protein Albumin Lipase Urine Color YELLOW Urine Appearance CLEAR Urine pH 6.5 Ur Specific [place] <= 1.005 Urine Protein NEG Urine Glucose (UA) NEG Urine Ketones NEG Urine Blood NEG Urine Nitrite NEG Ur Leukocyte Esterase NEG Urine Test Urine Opiates Screen Ur Barbiturates Screen Ur Phencyclidine Scrn Ur Amphetamines Screen U Benzodiazepines Scrn Urine Cocaine Screen U Marijuana (THC) Screen COVID-19 (MARILIN) COVID-19 [employer] Com 03/26/21 03/26/21 03/26/21 13:31 13:31 14:45 WBC RBC Hgb Hct MCV MCH MCHC RDW Plt Count MPV Immature Gran % (Auto) Neut % (Auto) Lymph % (Auto) [place] % (Auto) Eos % (Auto) Baso % (Auto) Lymph # (Auto) [place] # (Auto) Eos # (Auto) Baso # (Auto) Abs Immat Gran (auto) Absolute Neuts (auto) Absolute Nucleated RBC Nucleated RBC % (auto) ESR D-Dimer Sodium Potassium Chloride Carbon Dioxide Anion Gap BUN Creatinine Estim Creat Clear Calc Estimated GFR Random Glucose Calcium Magnesium Total Bilirubin Direct Bilirubin AST ALT Alkaline Phosphatase Total Creatine Kinase Troponin I High Sens 105.0 H* C-Reactive Protein Total Protein Albumin Lipase Urine Color Urine Appearance Urine pH Ur Specific [place] Urine Protein Urine Glucose (UA) Urine Ketones Urine Blood Urine Nitrite Ur Leukocyte Esterase Urine Test NEGATIVE Urine Opiates Screen Not Detected Ur Barbiturates Screen Not Detected Ur Phencyclidine Scrn Not Detected Ur Amphetamines Screen POSITIVE H U Benzodiazepines Scrn Not Detected Urine Cocaine Screen Not Detected U Marijuana (THC) Screen POSITIVE H COVID-19 (MARILIN) COVID-19 Clin Com 03/26/21 03/27/21 03/27/21 14:45 01:18 09:07 WBC 10.1 RBC 3.83 L Hgb 11.2 L Hct 34.7 L MCV 90.6 MCH 29.2 MCHC 32.3 RDW 14.3 Plt Count 316 D MPV 9.1 L Immature Gran % (Auto) Neut % (Auto) Lymph % (Auto) [place] % (Auto) Eos % (Auto) Baso % (Auto) Lymph # (Auto) [place] # (Auto) Eos # (Auto) Baso # (Auto) Abs Immat Gran (auto) Absolute Neuts (auto) Absolute Nucleated RBC 0.000 Nucleated RBC % (auto) 0.0 ESR D-Dimer Sodium Potassium Chloride Carbon Dioxide Anion Gap BUN Creatinine Estim Creat Clear Calc Estimated GFR Random Glucose Calcium Magnesium Total Bilirubin Direct Bilirubin AST ALT Alkaline Phosphatase Total Creatine Kinase Troponin I High Sens 38.2 H* D C-Reactive Protein Total Protein Albumin Lipase Urine Color Urine Appearance Urine pH Ur Specific [place] Urine Protein Urine Glucose (UA) Urine Ketones Urine Blood Urine Nitrite Ur Leukocyte Esterase Urine Test Urine Opiates Screen Ur Barbiturates Screen Ur Phencyclidine Scrn Ur Amphetamines Screen U Benzodiazepines Scrn Urine Cocaine Screen U Marijuana (THC) Screen COVID-19 (MARILIN) Negative COVID-19 Clin Com See Note 03/27/21 09:07 WBC RBC Hgb Hct MCV MCH MCHC RDW Plt Count MPV Immature Gran % (Auto) Neut % (Auto) Lymph % (Auto) [place] % (Auto) Eos % (Auto) Baso % (Auto) Lymph # (Auto) [place] # (Auto) Eos # (Auto) Baso # (Auto) Abs Immat Gran (auto) Absolute Neuts (auto) Absolute Nucleated RBC Nucleated RBC % (auto) ESR D-Dimer Sodium Potassium Chloride Carbon Dioxide Anion Gap BUN Creatinine Estim Creat Clear Calc Estimated GFR Random Glucose Calcium Magnesium Total Bilirubin Direct Bilirubin AST ALT Alkaline Phosphatase Total Creatine Kinase Troponin I High Sens 22.5 H* C-Reactive Protein Total Protein Albumin Lipase Urine Color Urine Appearance Urine pH Ur Specific [place] Urine Protein Urine Glucose (UA) Urine Ketones Urine Blood Urine Nitrite Ur Leukocyte Esterase Urine Test Urine Opiates Screen Ur Barbiturates Screen Ur Phencyclidine Scrn Ur Amphetamines Screen U Benzodiazepines Scrn Urine Cocaine Screen U Marijuana (THC) Screen COVID-19 (MARILIN) COVID-19 Clin Com EKG shows sinus tachycardia with normal EKG Imaging Radiologist's impression: Impressions Chest X-Ray 03/26/21 11:24 IMPRESSION: No acute disease. Abdomen/Pelvis CT 03/26/21 12:09 IMPRESSION: Diverticulosis of the colon. No evidence of diverticulitis, obstruction or intussusception. Abnormal rotation of the right kidney. Chest CTA 03/26/21 12:09 IMPRESSION: 1. No pulmonary embolism. No thoracic aortic dissection. 2. Lungs clear. No pneumothorax, infiltrate, or effusion. VTE: negative Assessment and Plan (1) Myocarditis: Status: Acute Patient presents with overall symptoms consistent with viral syndrome and diffuse body ache and muscle aches which are not very specific. She did have chest pressure yesterday in elevated troponins. She did have shortness of breath which could be due to bronchospastic airway disease. However overall finding with elevated inflammatory markers suggestive of myocarditis. Echocardiogram does not show any high risk findings with poor LV systolic function. At this point in time she can be discharged home with nonsteroidal agents. Obviously this condition does not require narcotics for treatment. This was discussed with her. Will start her on Toprol 50 mg daily given her prior history of hypertension as well. Importance of risk factor modification with complete smoking cessation and healthy heart lifestyle was discussed. Given his strong family history of premature coronary artery disease, will follow up with stress test as outpatient once her viral syndrome symptoms have improved. This was discussed with her and she is agreeable. Supportive care was discussed. Avoidance of sudden strenuous exertion the next 4 weeks was discussed. Will follow up as outpatient. Thank you for allowing us to partake in the care Procedures Date of Service Date of Service: 03/27/21
[2021-03-27] MEDS: Escitalopram Oxalate 20 MG TABLET PO (11:09)
[2021-03-27 11:36] VITALS: BP 131/82; PULSE 80; RESP 17; TEMP 35.9; O2SAT 95
[2021-03-27 15:11] VITALS: BP 131/66; PULSE 69; RESP 16; TEMP 36.2; O2SAT 94
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
[2021-03-27 16:38] LABS: Babesia Smear NEGATIVE (NEGATIVE)
[2021-03-27] MEDS: traMADoL HCL 50 MG TABLET PO (16:45)
[2021-03-29 17:31] LABS: A. Phagocytphilium DNA,RT-PCR NOT DETECTED (NOT DETECTED); Babesia Microti DNA, RT-PCR NOT DETECTED (NOT DETECTED); Borrelia Miyamotoi,DNA RT-PCR NOT DETECTED (NOT DETECTED); E.Chaffeensis DNA RT-PCR NOT DETECTED (NOT DETECTED); Lyme(Borrelia ssp)DNA RT-PCR NOT DETECTED (NOT DETECTED); Source-Tick borne disease BLOOD
[2021-04-03 06:12] LABS: Babesia IgG <1:64 titer (<1:64); Babesia IgM <1:20 titer (<1:20)
[2021-04-10 01:07] LABS: A. Phagocytophilum Ab IgG <1:64 (<1:64); A. Phagocytophilum Ab IgM <1:20 (<1:20); E. Chaffeensis Ab IgG <1:64 (<1:64); E. Chaffeensis Ab IgM <1:20 (<1:20)
== END 2021-03-27 19:10 | disposition home or self-care (01) ==
LOC: HO.ED 15:49 → HO.EDOVER 17:12 → HO.S3 03-27 06:29
PROVIDERS: Hospitalist; Admitting Provider Internal Medicine; Emergency Provider Emergency Medicine; PCP Internal Medicine; Visit Provider Internal Medicine
DX: I51.4 Myocarditis, unspecified (principal); R79.82 Elevated C-reactive protein (CRP); R77.8 Other specified abnormalities of plasma proteins; R06.02 Shortness of breath; R00.0 Tachycardia, unspecified; R07.9 Chest pain, unspecified; I10 Essential (primary) hypertension; J45.909 Unspecified asthma, uncomplicated; R63.5 Abnormal weight gain; K57.30 Diverticulosis of large intestine without perforation or abscess without bleeding; K56.1 Intussusception; D72.829 Elevated white blood cell count, unspecified; M79.10 Myalgia, unspecified site; F41.8 Other specified anxiety disorders; Z20.822 Contact with and (suspected) exposure to COVID-19; Z82.49 Family history of ischemic heart disease and other diseases of the circulatory system; Z88.5 Allergy status to narcotic agent; Z88.2 Allergy status to sulfonamides; Z88.8 Allergy status to other drugs, medicaments and biological substances; Z79.899 Other long term (current) drug therapy
CPT/HCPCS: 36415; 71045; 71275; 74177; 80048; 80076; 80307; 81003; 81025; 82550; 83690; 83735; 84484; 85025; 85027; 85379; 85652; 86140; 86666; 86753; 87207; 87635; 87798; 87801; 93005; 93306; 96361; 96365; 96366; 96374; 96375; 99218; 99285; J1170; J2060; J2405; Q9967

== ENCOUNTER 2021-05-14 21:24 | Emergency (ER) | payer MEDICAID, SELFPAY ==
--- NOTE | ~2021-05-14 | XR_ITS ---
EXAMINATION: XR ABDOMEN KUB CLINICAL INDICATION: Constipation. Question obstruction COMPARISON: CT 03/26/2021 TECHNIQUE: AP view of the abdomen. FINDINGS: Cholecystectomy clips right upper quadrant. Stomach and small bowel are nondilated. Large volume of stool throughout the colon in keeping with history of constipation. No acute osseous abnormality. XR/XR KUB IMPRESSION: No dilated loops of small bowel seen although only supine films were obtained. Large volume of stool in the colon consistent with history of constipation.
--- NOTE | ~2021-05-14 | CT_ITS ---
EXAMINATION: CT ABDOMEN AND PELVIS WITH CONTRAST CLINICAL INFORMATION: Left upper quadrant pain with history of intussusception COMPARISON: 03/26/2021 TECHNIQUE: Multidetector volumetric images were obtained from the superior aspect of the liver through the pubic symphysis following administration 85 mL of Omnipaque 350 intravenous contrast. Sagittal and coronal reformatted images were obtained on the technologist's workstation. Oral contrast: No This CT examination was performed using dose optimization techniques as appropriate, variously including the following: *Automated exposure control *Adjustment of mA and/or kV according to patient size (this includes techniques or standardized protocols for targeted exams where dose is matched to indication/reason for exam; i.e. extremities or head) *Use of iterative reconstruction technique DLP: 690 mGy-cm FINDINGS: LUNG BASES: The visualized lung bases are unremarkable. LIVER, GALLBLADDER, AND BILIARY TREE: The liver is normal in size, shape, and attenuation. No focal hepatic lesion or biliary ductal dilatation is present. The gallbladder is unremarkable with no evidence of radiopaque gallstones, gallbladder wall thickening, or obvious pericholecystic inflammatory changes. PANCREAS: Unremarkable. SPLEEN: Unremarkable. ADRENAL GLANDS: Unremarkable. KIDNEYS AND URETERS: The kidneys are normal in size, shape, and attenuation. 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 No hydronephrosis, hydroureter, or calculi seen. No perinephric stranding. BLADDER: Unremarkable. GASTROINTESTINAL TRACT: Again seen is colonic diverticulosis without evidence of diverticulitis. The cecum is mildly distended with fluid and stool. Proximal jejunum is mildly dilated at 3.8 cm with ileum measuring 1.6 cm. However, a point of obstruction or intussusception is not identified. The small and large bowel are otherwise unremarkable. The appendix appears to have been removed. ABDOMINAL WALL: No significant hernia is appreciated. LYMPH NODES: Normal. VASCULAR: Unremarkable. PELVIC VISCERA: Unremarkable. Bilateral ovarian cysts are present OSSEOUS STRUCTURES: Unremarkable. Schmorl's node on the superior endplate of T12. CT/CT abdomen pelvis w IV con IMPRESSION: 1. No convincing evidence of intussusception. Mild dilatation of proximal small bowel compared to the distal small bowel but no pathologic lesions seen. No evidence of bowel obstruction. 2. Colonic diverticulosis without diverticulitis 3. Bilateral ovarian cysts, need no further follow-up.
[2021-05-14 21:38] VITALS: BP 155/87; PULSE 102; RESP 18; TEMP 37; O2SAT 98; BMI 32.5
--- NOTE | 2021-05-14 22:31 | ED_ITS ---
HPI - Abdominal Pain General Chief Complaint: Abdominal Pain Stated Complaint: Rib pain Time Seen by Provider: 05/14/21 22:31 Source: patient Mode of arrival: ambulatory Limitations: no limitations History of Present Illness HPI narrative: Patient with history of constipation been constipated most more than 1 week complaining of pain in left upper abdomen unable to eat much but still drinking lot of fluids nausea present no vomiting patient with history of intussusception in the past and had similar episodes where she has to undergo colonoscopy to remove fecal matter. Patient was seen here in 03/[address] scan of the abdomen was negative patient asking for pain medication of arrival in the ER Related Data Home Medications Medication Instructions Recorded Confirmed albuterol sulfate 90 mcg/actuation 1 - 2 puff INHALATION Q4-6H PRN 03/26/21 03/26/21 aerosol inhaler (Ventolin HFA) citalopram 40 mg tablet 1 tab PO DAILY 03/26/21 03/26/21 clonazepam 0.5 mg tablet 0.5 mg PO TID PRN 03/26/21 03/26/21 fluticasone propionate 50 2 spray INTRANASAL DAILY 03/26/21 03/26/21 mcg/actuation nasal spray,suspension ibuprofen 600 mg tablet 600 mg PO TIDWM 03/26/21 03/26/21 ondansetron HCl 4 mg tablet 4 mg PO Q6H PRN 03/26/21 03/26/21 (Zofran) pantoprazole 40 mg tablet,delayed 40 mg PO BID@0630,1630 03/26/21 03/26/21 release (Protonix) Previous Rx's Medication Instructions Recorded tramadol 50 mg tablet 50 mg PO BID PRN #8 tab 03/27/21 Allergies Allergy/AdvReac Type Severity Reaction Status Date / Time azithromycin [AZITHROMYCIN] Allergy Unknown UNKNOWN Verified 05/14/21 21:38 Sulfa (Sulfonamide Allergy Unknown UNKNOWN Verified 05/14/21 21:38 Antibiotics) [SULFA (SULFONAMIDE ANTIBIOTICS)] sulfamethoxazole Allergy Unknown UNKNOWN Verified 05/14/21 21:38 [From BACTRIM] trimethoprim [From BACTRIM] Allergy Unknown UNKNOWN Verified 05/14/21 21:38 morphine Allergy Difficulty Verified 05/14/21 21:38 Breathing Review of Systems Review of Systems Yes all other systems are reviewed and are negative Physical Exam Vital Signs: Vital Signs: Last Vital Signs Temp 98.0 F 05/15/21 00:33 Pulse 77 05/15/21 00:33 Resp 16 05/15/21 00:33 BP 138/80 05/15/21 00:33 Pulse Ox 97 05/15/21 00:33 Body Mass Index 32.5 Appearance: Alert. Oriented X3. Anxious mild distress Eyes: No pallor or icterus ENT: Pharynx normal. Oral Mucosa moist Neck: Normal inspection. Neck supple. CVS: Normal heart rate and rhythm. Pulses normal. Respiratory: No respiratory distress. Equal air entry bilateral, no wheezing/rales/rhonchi Abdomen: Soft and mild tenderness left upper quadrant Bowel sounds are present, no mass palpable, no CVA tenderness Skin: Skin warm and dry. Normal skin color. Normal skin turgor. Extremities: No lower extremity edema. No calf tenderness Neuro: Oriented X 3. MDM - Abdominal Pain MDM Narrative Medical decision making narrative: Patient chronic constipation with history of intussusception requiring enteroscopy to remove the stool will do CT scan abdomen to rule out intussusception. Patient's lactic acid is 2 Differential Diagnosis Differential diagnosis: Likely abdominal pain, constipation and small bowel obstruction Lab Data Attestation: I reviewed the patient's lab results. Result diagrams: 05/14/21 23:46 05/14/21 23:46 Labs: Lab Results 05/14/21 05/14/21 05/14/21 Range/Units 23:46 23:46 23:46 WBC 12.3 H (4.8-10.8) X10*3/uL RBC 4.79 D (4.20-5.50) X10*6/uL Hgb 13.6 D (12.0-16.0) g/dl Hct 41.1 (37-47) % MCV 85.8 (80-98) fL MCH 28.4 (27.0-33.0) pg MCHC 33.1 (31.0-35.0) g/dl RDW 13.9 (11.0-16.0) % Plt Count 388 (160-400) X10*3/uL MPV 9.0 L (9.4-12.3) fL Immature Gran % (Auto) 0.9 H (0.0-0.4) % Neut % (Auto) 71.1 (45-73) % Lymph % (Auto) 21.2 (20-40) % [place] % (Auto) 5.3 (2-11) % Eos % (Auto) 1.1 (0-4) % Baso % (Auto) 0.4 (0-2) % Lymph # (Auto) 2.6 (1.2-4.9) X10*3/uL [place] # (Auto) 0.7 (0.1-1.2) X10*3/uL Eos # (Auto) 0.1 (0.0-0.4) X10*3/uL Baso # (Auto) 0.1 (0.0-0.2) X10*3/uL Abs Immat Gran (auto) 0.11 H (0.00-0.03) X10*3/uL Absolute Neuts (auto) 8.8 H (2.0-8.3) X10*3/uL Absolute Nucleated RBC 0.000 (0.0-0.012) X10*3/uL Nucleated RBC % (auto) 0.0 (0.0-0.2) /100WBC Sodium 136 (135-145) mmol/L Potassium 3.2 L (3.3-5.1) mmol/L Chloride 93 L (96-108) mmol/L Carbon Dioxide 32 H (22-29) mmol/L Anion Gap 14 (12-20) BUN 10 (9-16) mg/dL Creatinine 1.00 (0.5-1.4) mg/dL Estim Creat Clear Calc 81.0 Estimated GFR > 60 Random Glucose 103 (60-115) mg/dL Lactic Acid 2.0 (0.5-2.0) mmol/L Calcium 10.8 H D (8.4-10.2) mg/dL Total Bilirubin 0.5 (0.0-1.0) mg/dL Direct Bilirubin < 0.2 (0.0-0.5) mg/dL AST 24 (5-31) U/L ALT 27 (0-31) U/L Alkaline Phosphatase 151 H D (39-117) U/L Total Protein 8.3 H (6.5-8.0) g/dL Albumin 4.6 (3.5-5.0) g/dL Lipase 76 (8-78) U/L Beta HCG, Quant < 2 mIU/mL Discharge Plan Discharge Clinical Impression: Constipation Qualifiers: Constipation type: chronic idiopathic constipation Qualified Code(s): K59.04 - Chronic idiopathic constipation Prescriptions: No Action citalopram 40 mg tablet 1 tab PO DAILY RF: 0 ondansetron HCl [Zofran] 4 mg Tablet 4 mg PO Q6H PRN (Reason: Nausea And Vomiting) RF: 0 clonazepam 0.5 mg Tablet 0.5 mg PO TID PRN (Reason: Anxiety) RF: 0 pantoprazole [Protonix] 40 mg Tablet,Delayed Release (Dr/Ec) 40 mg PO BID@0630,1630 RF: 0 ibuprofen 600 mg Tablet 600 mg PO TIDWM RF: 0 albuterol sulfate [Ventolin HFA] 90 mcg/actuation Hfa Aerosol Inhaler 1 - 2 puff INHALATION Q4-6H PRN (Reason: Shortness Of Breath) RF: 0 fluticasone propionate 50 mcg/actuation spray,suspension 2 spray intranasal DAILY RF: 0 tramadol 50 mg tablet 50 mg PO BID PRN (Reason: pain (scale score 7-10)) Qty: 8 RF: 0 PMFSH Past Medical History Medical History Asthma Gastroparesis Hypertension Intussusception Migraine headache Surgical History History of appendectomy History of cholecystectomy Social History Social History Household Members: Children Housing: Other Housing Other:: skilled nursing Do you presently have visiting nurse or other home services: No Patient Tobacco Use Status: Current everyday Tobacco user Tobacco use type: Cigarette Cigarettes Per Day: 10 Substance Use Type: Marijuana Advance Directives: No Advance Directives Information Provided: Yes Patient : No service: No Current occupational status: employed
[2021-05-14] MEDS: traMADoL HCL 50 MG TABLET PO (22:45)
[2021-05-14] MEDS: bisacodyL 5 MG TABLET.DR 10 MG PO (22:46)
[2021-05-14] MEDS: Magnesium Citrate 300 ML SOLUTION PO (22:46)
[2021-05-14 23:52] LABS: Basophils Absolute Auto 0.1 X10*3/uL (0.0-0.2); Basophils Percent Auto 0.4 % (0-2); Eosinophils Absolute Auto 0.1 X10*3/uL (0.0-0.4); Eosinophils Percent Auto 1.1 % (0-4); Hematocrit 41.1 % (37-47); Hemoglobin 13.6 g/dl (12.0-16.0); Imm Gran Abs Auto 0.11 X10*3/uL (0.00-0.03); Imm Gran Pct Auto 0.9 % (0.0-0.4); Lymphocytes Absolute Auto 2.6 X10*3/uL (1.2-4.9); Lymphocytes Percent Auto 21.2 % (20-40); MANUAL DIFF FLAG NO; Mean Corpuscular HGB Conc 33.1 g/dl (31.0-35.0); Mean Corpuscular Hemoglobin 28.4 pg (27.0-33.0); Mean Corpuscular Volume 85.8 fL (80-98); Monocytes Absolute Auto 0.7 X10*3/uL (0.1-1.2); Monocytes Percent Auto 5.3 % (2-11); Neutrophils Absolute Auto 8.8 X10*3/uL (2.0-8.3); Neutrophils Percent Auto 71.1 % (45-73); Platelet Count 388 X10*3/uL (160-400); Red Blood Count 4.79 X10*6/uL (4.20-5.50); Red Cell Distribution Width 13.9 % (11.0-16.0); White Blood Count 12.3 X10*3/uL (4.8-10.8)
[2021-05-14] MEDS: 0.9 % Sodium Chloride 1,000 ML 999 ML IVCONT (23:52)
[2021-05-14] MEDS: ondansetron HCL 4 MG/2 ML VIAL IVPUSH (23:52)
[2021-05-14] MEDS: HYDROmorphone HCl 1 MG/ML SYRINGE IVPUSH (23:52)
--- NOTE | 2021-05-15 00:03 | PC.NURSE ---
20g IV inserted into left AC. PT medicated per MAR for 9/10 pain. PT is aware of plan and waiting for CT scan.
[2021-05-15 00:13] LABS: Alanine Aminotransferase 27 U/L (0-31); Albumin Level 4.6 g/dL (3.5-5.0); Alkaline Phosphatase 151 U/L (39-117); Anion Gap 14 (12-20); Aspartate Amino Transferase 24 U/L (5-31); Bilirubin Direct < 0.2 mg/dL (0.0-0.5); Bilirubin Total 0.5 mg/dL (0.0-1.0); Blood Urea Nitrogen 10 mg/dL (9-16); Calcium 10.8 mg/dL (8.4-10.2); Carbon Dioxide 32 mmol/L (22-29); Chloride 93 mmol/L (96-108); Estimated Glomerular Filt Rate > 60; Glucose Random 103 mg/dL (60-115); Lipase 76 U/L (8-78); Potassium 3.2 mmol/L (3.3-5.1); Sodium 136 mmol/L (135-145); Total Protein 8.3 g/dL (6.5-8.0)
[2021-05-15 00:33] VITALS: BP 138/80; PULSE 77; RESP 16; TEMP 36.7; O2SAT 97
[2021-05-15 00:50] LABS: HCG Quantitative < 2 mIU/mL
--- NOTE | 2021-05-15 01:01 | PC.NURSE ---
PT transferred to CT.
[2021-05-15] MEDS: iohexoL 350 MG/ML 100 ML INFUS..BTL IV (01:08)
[2021-05-15 01:25] VITALS: RESP 16
[2021-05-15] MEDS: HYDROmorphone HCl 1 MG/ML SYRINGE IVPUSH (01:25)
[2021-05-15] MEDS: 0.9 % Sodium Chloride 1,000 ML 999 ML IVCONT (01:32)
[2021-05-15] MEDS: Potassium Chloride ER 20 MEQ TAB.ER.PRT 60 MEQ PO (02:25)
[2021-05-15 02:30] VITALS: PULSE 103; RESP 18; O2SAT 96
[2021-05-15 02:32] VITALS: BP 172/100; O2SAT 99
--- NOTE | 2021-05-15 02:33 | PC.NURSE ---
PT IN BED SOBBING, ROLLING AROUND ON STRETCHER STATING I AM IN SO MUCH PAIN I CANT BREATHE THIS OCCURRED IMMEDIATELY AFTER MD WAS AT BEDSIDE DISCUSSING CT SCAN RESULTS, STATING PT WOULD BE D/C. PT ASKED FOR ADDITIONAL PAIN MEDS SPECIFICALLY OPIATES PRIOR TO D/C AND FOR HOME. MD INSTRUCTED PT THAT OPIATES WILL CAUSE ADDITIONAL CONSTIPATION AND THEN THE ABOVE BEHAVIOR BEGAN. PT WAS VERY CALM, RESTING PEACEFUL, IN NO APPARENT DISTRESS PRIOR TO BEING TOLD SHE WOULD NOT BE GIVEN ADDITIONAL DILAUDID.
== END 2021-05-15 02:50 | disposition home or self-care (01) ==
PROVIDERS: Emergency Provider Internal Medicine; PCP Internal Medicine
DX: K59.04 Chronic idiopathic constipation (principal); R07.81 Pleurodynia; F17.210 Nicotine dependence, cigarettes, uncomplicated; I10 Essential (primary) hypertension; F12.90 Cannabis use, unspecified, uncomplicated; Z71.6 Tobacco abuse counseling; Z79.899 Other long term (current) drug therapy
CPT/HCPCS: 36415; 74018; 74177; 80048; 80076; 83605; 83690; 84702; 85025; 96361; 96374; 96375; 96376; 99284; J1170; J2405; Q9967

== ENCOUNTER 2021-05-18 20:52 | Emergency (ER) | payer MEDICAID, SELFPAY ==
--- NOTE | ~2021-05-18 | CT_ITS ---
EXAMINATION: CT ANGIOGRAM OF THE CHEST WITH AND WITHOUT CONTRAST (CT PULMONARY ANGIOGRAM FOR PE) Topogram and premonitor scans obtained only. IV infiltrated. New IV access could not be obtained. CT PA gram not performed. Patient dose 34 mgy/cm.
--- NOTE | ~2021-05-18 | NM_ITS ---
EXAMINATION: NM LUNG IMAGE PERFUSION CLINICAL INFORMATION: Chest pain, SOB and elevated d-dimer COMPARISON: None TECHNIQUE: Following intravenous administration of 4 mCi of technetium 99m MAA, images over the lungs were obtained multiple projections. Ventilation study was not obtained. FINDINGS: There is normal perfusion seen in all segments of both lungs without focal segmental or subsegmental defect. The soft tissues are normal. Ventilation study was not performed. NM/NM pul perfusion IMPRESSION: Normal perfusion visualized in all segments of both lungs without focal segmental or subsegmental defect.
[2021-05-19 01:01] VITALS: BP 169/99; PULSE 83; RESP 16; TEMP 36.7; O2SAT 99; BMI 30.9
--- NOTE | 2021-05-19 01:09 | PC.NURSE ---
Provider at bed side for primary assessment. PT complaining of 10/10 pain in left upper quadrant. Plan is to insert IV and CT this area. PT is calm and cooperative. Respirations even but pain is reported with breathing.
--- NOTE | 2021-05-19 01:14 | ECG_ITS ---
Test Reason : CHEST PAIN Blood Pressure : / mmHG Vent. Rate : 076 BPM Atrial Rate : 076 BPM P-R Int : 172 ms QRS Dur : 080 ms QT Int : 434 ms P-R-T Axes : 026 030 007 degrees QTc Int : 488 ms Normal sinus rhythm Prolonged QT Abnormal ECG When compared with ECG of 27-MAR-2021 01:02, Vent. rate has decreased BY 38 BPM T wave amplitude has decreased in Anterior leads Referred By: Sascha Torres Electronically Signed By:CARLINE THOMAS
--- NOTE | 2021-05-19 01:16 | ED.GENADULT ---
HPI - General Adult General Chief complaint: Abdominal Pain Stated complaint: Rib pain Time Seen by Provider: 05/19/21 01:02 History of Present Illness HPI narrative: This is 56 years old patient presented to the ED complaining of a left-sided chest wall pain,she was seen in ED 05/14 as well and sent home with constipation Onset (ago): day(s) (2) Location: chest Radiation: non-radiation Severity: moderate Quality: aching Pain Consistency: constant Related Data Home Medications Medication Instructions Recorded Confirmed albuterol sulfate 90 mcg/actuation 1 - 2 puff INHALATION Q4-6H PRN 03/26/21 03/26/21 aerosol inhaler (Ventolin HFA) citalopram 40 mg tablet 1 tab PO DAILY 03/26/21 03/26/21 clonazepam 0.5 mg tablet 0.5 mg PO TID PRN 03/26/21 03/26/21 fluticasone propionate 50 2 spray INTRANASAL DAILY 03/26/21 03/26/21 mcg/actuation nasal spray,suspension ibuprofen 600 mg tablet 600 mg PO TIDWM 03/26/21 03/26/21 ondansetron HCl 4 mg tablet 4 mg PO Q6H PRN 03/26/21 03/26/21 (Zofran) pantoprazole 40 mg tablet,delayed 40 mg PO BID@0630,1630 03/26/21 03/26/21 release (Protonix) Previous Rx's Medication Instructions Recorded tramadol 50 mg tablet 50 mg PO BID PRN #8 tab 03/27/21 Allergies Allergy/AdvReac Type Severity Reaction Status Date / Time azithromycin [AZITHROMYCIN] Allergy Unknown UNKNOWN Verified 05/19/21 01:02 Sulfa (Sulfonamide Allergy Unknown UNKNOWN Verified 05/19/21 01:02 Antibiotics) [SULFA (SULFONAMIDE ANTIBIOTICS)] sulfamethoxazole Allergy Unknown UNKNOWN Verified 05/19/21 01:02 [From BACTRIM] trimethoprim [From BACTRIM] Allergy Unknown UNKNOWN Verified 05/19/21 01:02 morphine Allergy Difficulty Verified 05/19/21 01:02 Breathing Review of Systems Review of Systems: Yes all other systems are reviewed and are negative Constitutional: Constitutional: Reports no additional constitutional complaints Eyes: Eyes: Reports no additional eye complaints ENT: Reports system reviewed and no additional complaints, except as documented Cardiovascular: Cardiovascular: Reports no additional cardiovascular complaints, Denies rapid heart rate, Denies pedal edema and Denies edema Musculoskeletal: Musculoskeletal: Reports no additional musculoskeletal complaints Psychiatric: Psychiatric: Reports no additional psychiatric complaints [facility] Past Medical History Medical History Asthma Gastroparesis Hypertension Intussusception Migraine headache Surgical History History of appendectomy History of cholecystectomy Social History Social History Household Members: Children Housing: Other Housing Other:: senior care Do you presently have visiting nurse or other home services: No Patient Tobacco Use Status: Current everyday Tobacco user Tobacco use type: Cigarette Cigarettes Per Day: 10 Substance Use Type: Marijuana Advance Directives: No Patient : No service: No Current occupational status: employed Physical Exam Vital Signs: Vital Signs: Last Vital Signs Temp 98.1 F 05/19/21 01:01 Pulse 83 05/19/21 01:01 Resp 16 05/19/21 01:01 BP 169/99 H 05/19/21 01:01 Pulse Ox 99 05/19/21 01:01 Body Mass Index 30.9 Const: General: cooperative, well developed and anxious Orientation/consciousness: patient oriented x3 HENMT: Head: Yes normal to inspection Face and sinus: Yes normal facial exam Mouth: Normal oral and palatal mucosa present Throat: Yes posterior oropharynx normal Neck: Neck: Yes full ROM and Yes no lymphadenopathy Thyroid: Thyroid normal Chest: Chest palpation & inspection: normal inspection of the chest Resp: Effort & Inspection: normal respiratory effort Auscultation: clear to auscultation bilaterally Cardio: Jugular venous distension: no JVD Rate: regular rate Rhythm: regular rhythm GI: Inspection: Yes normal to inspection Palpation (GI): Soft to palpation, not firm and nontender Auscultation: normal bowel sounds Skin: General skin exam: no rashes or lesions noted and elasticity normal Rashes: no rashes Neuro: General: patient oriented x3 and gait normal Cranial nerves: Yes CN's II-XII intact bilaterally Cognition (Neuro): normal cognition Course Reevaluation(s) Reevaluation #1: Remain in stable condition we are waiting for the CTA of the labs result patient will be signed out to the night attending DR Grimm Reevaluation #2: Signed out to Dr Grimm Medical Decision Making Lab Data Result diagrams: 05/19/21 01:45 05/19/21 01:45 Labs: Lab Results 05/19/21 05/19/21 05/19/21 Range/Units 01:45 01:45 01:45 WBC 9.3 (4.8-10.8) X10*3/uL RBC 4.31 (4.20-5.50) X10*6/uL Hgb 12.6 (12.0-16.0) g/dl Hct 37.9 (37-47) % MCV 87.9 (80-98) fL MCH 29.2 (27.0-33.0) pg MCHC 33.2 (31.0-35.0) g/dl RDW 14.2 (11.0-16.0) % Plt Count 338 (160-400) X10*3/uL MPV 9.1 L (9.4-12.3) fL Immature Gran % (Auto) 0.4 (0.0-0.4) % Neut % (Auto) 65.0 (45-73) % Lymph % (Auto) 28.3 (20-40) % [place] % (Auto) 5.4 (2-11) % Eos % (Auto) 0.6 (0-4) % Baso % (Auto) 0.3 (0-2) % Lymph # (Auto) 2.6 (1.2-4.9) X10*3/uL [place] # (Auto) 0.5 (0.1-1.2) X10*3/uL Eos # (Auto) 0.1 (0.0-0.4) X10*3/uL Baso # (Auto) 0.0 (0.0-0.2) X10*3/uL Abs Immat Gran (auto) 0.04 H (0.00-0.03) X10*3/uL Absolute Neuts (auto) 6.0 (2.0-8.3) X10*3/uL Absolute Nucleated RBC 0.000 (0.0-0.012) X10*3/uL Nucleated RBC % (auto) 0.0 (0.0-0.2) /100WBC Sodium 138 (135-145) mmol/L Potassium 3.0 L (3.3-5.1) mmol/L Chloride 96 (96-108) mmol/L Carbon Dioxide 30 H (22-29) mmol/L Anion Gap 15 (12-20) BUN 6 L (9-16) mg/dL Creatinine 0.93 (0.5-1.4) mg/dL Estim Creat Clear Calc 84.7 Estimated GFR > 60 Random Glucose 102 (60-115) mg/dL Calcium 9.3 D (8.4-10.2) mg/dL Total Bilirubin < 0.2 (0.0-1.0) mg/dL AST 17 (5-31) U/L ALT 18 (0-31) U/L Alkaline Phosphatase 124 H (39-117) U/L Troponin I High Sens < 3.5 D (<3.5-17.0) ng/L Total Protein 7.1 (6.5-8.0) g/dL Albumin 4.1 (3.5-5.0) g/dL ECG Data Attestation: I personally reviewed and interpreted this ECG as follows: Pacemaker model: NSR 76 no ischmic changes Pacemaker function: normal pacer function Discharge Plan Discharge Clinical Impression: Chest pain Prescriptions: No Action citalopram 40 mg tablet 1 tab PO DAILY RF: 0 ondansetron HCl [Zofran] 4 mg Tablet 4 mg PO Q6H PRN (Reason: Nausea And Vomiting) RF: 0 clonazepam 0.5 mg Tablet 0.5 mg PO TID PRN (Reason: Anxiety) RF: 0 pantoprazole [Protonix] 40 mg Tablet,Delayed Release (Dr/Ec) 40 mg PO BID@0630,1630 RF: 0 ibuprofen 600 mg Tablet 600 mg PO TIDWM RF: 0 albuterol sulfate [Ventolin HFA] 90 mcg/actuation Hfa Aerosol Inhaler 1 - 2 puff INHALATION Q4-6H PRN (Reason: Shortness Of Breath) RF: 0 fluticasone propionate 50 mcg/actuation spray,suspension 2 spray intranasal DAILY RF: 0 tramadol 50 mg tablet 50 mg PO BID PRN (Reason: pain (scale score 7-10)) Qty: 8 RF: 0
[2021-05-19 01:51] LABS: MANUAL DIFF FLAG NO
[2021-05-19 01:52] LABS: Basophils Percent Auto 0.3 % (0-2); Eosinophils Absolute Auto 0.1 X10*3/uL (0.0-0.4); Eosinophils Percent Auto 0.6 % (0-4); Hematocrit 37.9 % (37-47); Hemoglobin 12.6 g/dl (12.0-16.0); Imm Gran Abs Auto 0.04 X10*3/uL (0.00-0.03); Imm Gran Pct Auto 0.4 % (0.0-0.4); Lymphocytes Absolute Auto 2.6 X10*3/uL (1.2-4.9); Lymphocytes Percent Auto 28.3 % (20-40); Mean Corpuscular HGB Conc 33.2 g/dl (31.0-35.0); Mean Corpuscular Hemoglobin 29.2 pg (27.0-33.0); Mean Corpuscular Volume 87.9 fL (80-98); Mean Platelet Volume 9.1 fL (9.4-12.3); Monocytes Absolute Auto 0.5 X10*3/uL (0.1-1.2); Monocytes Percent Auto 5.4 % (2-11); Platelet Count 338 X10*3/uL (160-400); Red Blood Count 4.31 X10*6/uL (4.20-5.50); Red Cell Distribution Width 14.2 % (11.0-16.0); White Blood Count 9.3 X10*3/uL (4.8-10.8)
[2021-05-19 02:10] LABS: Alanine Aminotransferase 18 U/L (0-31); Albumin Level 4.1 g/dL (3.5-5.0); Alkaline Phosphatase 124 U/L (39-117); Anion Gap 15 (12-20); Aspartate Amino Transferase 17 U/L (5-31); Bilirubin Total < 0.2 mg/dL (0.0-1.0); Blood Urea Nitrogen 6 mg/dL (9-16); Calcium 9.3 mg/dL (8.4-10.2); Carbon Dioxide 30 mmol/L (22-29); Chloride 96 mmol/L (96-108); Creatinine Clr Calc Pharmacy 84.7; Estimated Glomerular Filt Rate > 60; Glucose Random 102 mg/dL (60-115); Sodium 138 mmol/L (135-145); Total Protein 7.1 g/dL (6.5-8.0)
[2021-05-19 02:12] LABS: Troponin-I High Sensitivity < 3.5 ng/L (<3.5-17.0)
[2021-05-19] MEDS: Potassium Chloride ER 20 MEQ TAB.ER.PRT PO (02:19)
[2021-05-19] MEDS: Morphine Sulfate 4 MG/ML CARTRIDGE IVPUSH (02:19)
--- NOTE | 2021-05-19 02:22 | PC.NURSE ---
PT REPORTS AN ADVERSE REACTION TO MORPHINE IN THE PAST, CHEST DISCOMFORT FROM FAST ADMINISTRATION. PT WANTS TO TRY MORPHINE NOW.
[2021-05-19 02:23] VITALS: BP 151/89; PULSE 92; RESP 16; O2SAT 100
--- NOTE | 2021-05-19 02:28 | PC.NURSE ---
PT EXPERIENCING NAUSEA, REQUESTING ZOFRAN.
[2021-05-19] MEDS: ondansetron HCL 4 MG/2 ML VIAL IVPUSH (02:40)
[2021-05-19 02:42] LABS: HCG Quantitative < 2 mIU/mL
--- NOTE | 2021-05-19 04:19 | PC.NURSE ---
DIFFICULTY OBTAINING LARGER IV ABOVE WRIST. #22 IN RIGHT FOREARM INFILTRATED DURING TEST IN CT SCAN. ATTEMPT IN EACH AC. #20 G PLACED IN RIGHT SUCCESSFUL, PT REPORTS IT LOUIE WHEN FLUSHED DURING TEST. PT BROUGHT BACK TO ROOM. SPOKE WITH MD CHAVEZ ABOUT ISSUE WITH IV. D DIMER ORDERED AND SENT. MD WILL DECIDE IF CTA NECESSARY OR DRY CT WILL BE ORDERED. RELAYED PT'S REQUEST FOR DILAUDID.
[2021-05-19 04:24] LABS: D Dimer 328 NG/ML
[2021-05-19] MEDS: Ketorolac Tromethamine 15 MG/ML VIAL IVPUSH (04:46)
--- NOTE | 2021-05-19 06:41 | PC.NURSE ---
ATTEMPT BY MD X 2 WITH ULTRASOUND GUIDED IV ACCESS UNSUCCESSFUL ON LEFT SIDE. MD WILL LOOK INTO VQ SCAN.
--- NOTE | 2021-05-19 06:43 | PC.NURSE ---
RADIOLOGY REPORTS THAT THERE WAS NO CONTRAST SEEN IN CHEST DURING CTA. IV ON RIGHT REMOVED.
[2021-05-19 07:09] VITALS: BP 140/75; PULSE 77; RESP 17; TEMP 37; O2SAT 97
[2021-05-19] MEDS: Ketorolac Tromethamine 15 MG/ML VIAL IM (08:00)
[2021-05-19] MEDS: Acetaminophen 325 MG TABLET 975 MG PO (08:00)
== END 2021-05-19 11:19 | disposition left against medical advice (07) ==
PROVIDERS: Emergency Medicine; Student in an Organized Health Care Education/Training Program; Emergency Provider Emergency Medicine; PCP Internal Medicine
DX: R07.9 Chest pain, unspecified (principal); K59.00 Constipation, unspecified; F12.90 Cannabis use, unspecified, uncomplicated; F17.210 Nicotine dependence, cigarettes, uncomplicated; Z71.6 Tobacco abuse counseling; Z79.899 Other long term (current) drug therapy
CPT/HCPCS: 36415; 71275; 78580; 80053; 84484; 84702; 85025; 85379; 93005; 96365; 96372; 96375; 99284; 99285; A9540; J1885; J2270; J2405

== ENCOUNTER → 2021-06-23 12:49 | Outpatient (BNVA) | payer MEDICAID, SELFPAY | PROVIDERS: PCP Internal Medicine; Referring Provider Internal Medicine; Visit Provider Internal Medicine Cardiovascular Disease | DX: R06.02 Shortness of breath (principal); R07.9 Chest pain, unspecified; I10 Essential (primary) hypertension; E78.5 Hyperlipidemia, unspecified; K56.1 Intussusception; K31.84 Gastroparesis; F17.210 Nicotine dependence, cigarettes, uncomplicated; Z59.01 Sheltered homelessness; Z90.49 Acquired absence of other specified parts of digestive tract; Z98.890 Other specified postprocedural states; Z88.6 Allergy status to analgesic agent; Z88.1 Allergy status to other antibiotic agents; Z88.2 Allergy status to sulfonamides; Z79.899 Other long term (current) drug therapy | CPT/HCPCS: 99212 ==

== ENCOUNTER 2021-10-06 10:33 | Outpatient (REF) | payer MEDICAID, SELFPAY ==
--- NOTE | ~2021-10-06 | XR_ITS ---
EXAMINATION: XR ABDOMEN COMPLETE CLINICAL INDICATION: Constipation COMPARISON: CT abdomen and pelvis 05/15/2021, KUB 05/14/2021. TECHNIQUE: 2 views of the abdomen. FINDINGS: There is normal stool burden. Some minor stool present right colon. There is no rectal fecal impaction or excessive amount of stool. There is no gaseous dilatation of bowel or abnormal collections of gas. Surgical clips right upper quadrant are from prior cholecystectomy. There are also some fine clips right lower quadrant from prior appendectomy. There are no visible urinary tract calculi. Bony structures are unremarkable. XR/XR abdomen min 2V IMPRESSION: Unremarkable examination.
[2021-10-06 12:05] LABS: Hematocrit 42.9 % (37.0-47.0); Hemoglobin 13.8 g/dl (12.0-16.0); Mean Corpuscular HGB Conc 32.2 g/dl (31.0-35.0); Mean Corpuscular Hemoglobin 27.4 pg (27.0-33.0); Mean Corpuscular Volume 85.3 fL (80.0-98.0); Mean Platelet Volume 9.5 fL (9.4-12.3); Platelet Count 495 X10*3/uL (160-400); Red Blood Count 5.03 X10*6/uL (4.20-5.50); Red Cell Distribution Width 14.7 % (11.0-16.0); White Blood Count 11.2 X10*3/uL (4.8-10.8)
[2021-10-06 12:59] LABS: TSH reflex Free T4 3.67 uIU/mL (0.32-4.0)
== END 2021-10-06 10:34 | disposition home or self-care (01) ==
LOC: HO.LAB 10:33
PROVIDERS: PCP Internal Medicine; Visit Provider Internal Medicine Gastroenterology
DX: K59.00 Constipation, unspecified (principal)
CPT/HCPCS: 36415; 74019; 84443; 85027

== ENCOUNTER 2022-10-13 13:52 | Outpatient (REF) | payer MEDICAID, SELFPAY ==
--- NOTE | ~2022-10-13 | XR_ITS ---
EXAMINATION: XR BILATERAL HIPS WITH AP PELVIS CLINICAL INFORMATION: Bilateral hip pain COMPARISON: 08/09/2019 right hip TECHNIQUE: AP and frog-leg lateral views of each hip and an AP view of the pelvis. FINDINGS: The bones and soft tissues are normal. No fracture. Sacroiliac and hip joints are normal. Pubic symphysis is normal. No abnormal soft tissue calcifications. XR/XR hip BI w PEL1V IMPRESSION: Normal pelvis and hips.
[2022-10-13 14:26] LABS: MANUAL DIFF FLAG NO
[2022-10-13 15:05] LABS: Basophils Absolute Auto 0.1 X10*3/uL (0.0-0.2); Basophils Percent Auto 0.7 % (0-2); Eosinophils Absolute Auto 0.3 X10*3/uL (0.0-0.4); Eosinophils Percent Auto 3.7 % (0-4); Hematocrit 32.9 % (37.0-47.0); Hemoglobin 10.6 g/dl (12.0-16.0); Imm Gran Abs Auto 0.06 X10*3/uL (0.00-0.03); Imm Gran Pct Auto 0.7 % (0.0-0.4); Lymphocytes Absolute Auto 3.7 X10*3/uL (1.2-4.9); Lymphocytes Percent Auto 44.2 % (20-40); Mean Corpuscular HGB Conc 32.2 g/dl (31.0-35.0); Mean Corpuscular Hemoglobin 28.3 pg (27.0-33.0); Mean Platelet Volume 9.6 fL (9.4-12.3); Monocytes Absolute Auto 0.8 X10*3/uL (0.1-1.2); Monocytes Percent Auto 9.3 % (2-11); Neutrophils Absolute Auto 3.4 x10*3/uL (2.0-8.3); Neutrophils Percent Auto 41.4 % (45-73); Platelet Count 297 X10*3/uL (160-400); Red Blood Count 3.74 X10*6/uL (4.20-5.50); Red Cell Distribution Width 14.2 % (11.0-16.0); White Blood Count 8.3 X10*3/uL (4.8-10.8)
[2022-10-13 15:19] LABS: Estimated Average Glucose 97 mg/dL
[2022-10-13 15:46] LABS: Erythrocyte Sedimentation Rate 25 MM/HR (0-20)
[2022-10-13 15:55] LABS: Alanine Aminotransferase 9 U/L (0-31); Albumin Level 3.7 g/dL (3.5-5.0); Alkaline Phosphatase 95 U/L (39-117); Anion Gap 16 (12-20); Aspartate Amino Transferase 17 U/L (5-31); Bilirubin Direct < 0.2 mg/dL (0.0-0.5); Bilirubin Total 0.2 mg/dL (0.0-1.0); Blood Urea Nitrogen 11 mg/dL (9-16); C Reactive Protein 0.89 mg/dL (< or = 0.50); Calcium 9.3 mg/dL (8.4-10.2); Carbon Dioxide 28 mmol/L (22-29); Chloride 99 mmol/L (96-108); Cholesterol 246 mg/dL; Estimated Glomerular Filt Rate 59; Glucose Random 62 mg/dL (60-115); HDL Cholesterol 30 mg/dL; Potassium 4.8 mmol/L (3.3-5.1); Sodium 138 mmol/L (135-145); TSH reflex Free T4 1.96 uIU/mL (0.32-4.0); Total Protein 6.7 g/dL (6.5-8.0); Triglycerides 681 mg/dL
[2022-10-13 16:35] LABS: Creatinine Urine 44.58 mg/dL; Microalbumin Urine < 5.0 mg/L
[2022-10-14 07:54] LABS: ~HepC Num1 0.12 S/CO (0.00-0.79); ~Hepatitis C Antibody Nonreactive (Nonreactive)
[2022-10-14 07:56] LABS: Hepatitis A Antibody IgM 0.15 Index (0-0.79); ~Hepatitis A Antibody IgM Nonreactive (Nonreactive)
[2022-10-14 08:02] LABS: ~Hepatitis B Surface Antibody REACTIVE (Nonreactive)
[2022-10-15 13:42] LABS: HIV RNA PCR Qn Copies NOT DETECTED copies/mL (NOT DETECTED); HIV RNA PCR Qn Log Copies NOT DETECTED (NOT DETECTED)
[2022-10-15 20:38] LABS: TS Negative Control Passed; TS Panel A 0; TS Panel B 0; TS Positive Control Passed; TSpotTB Negative (Negative)
== END 2022-10-13 13:53 | disposition home or self-care (01) ==
LOC: HO.XRAY 13:52
PROVIDERS: Absent Provider Nurse Practitioner; Visit Provider Internal Medicine
DX: Z00.00 Encounter for general adult medical examination without abnormal findings (principal); Z11.1 Encounter for screening for respiratory tuberculosis; Z11.4 Encounter for screening for human immunodeficiency virus [HIV]; M25.551 Pain in right hip; M25.552 Pain in left hip
CPT/HCPCS: 36415; 73521; 80048; 80061; 80076; 82043; 83036; 84443; 85025; 85652; 86140; 86481; 86706; 86709; 86803; 87536

== ENCOUNTER 2022-10-30 14:41 | Outpatient (REF) | payer MEDICAID, SELFPAY ==
--- NOTE | ~2022-10-30 | US_ITS ---
EXAMINATION: ULTRASOUND RIGHT POPLITEAL FOSSA CLINICAL INFORMATION: Pain; question Abraham's cyst. COMPARISON: None TECHNIQUE: Using a linear array transducer with grayscale and color modalities, ultrasound examination is performed of the right popliteal fossa. FINDINGS: The cutaneous, subcutaneous, muscular and fascial planes are unremarkable. Within the right popliteal fossa, a 5.0 x 1.5 x 2.3 cm complex Abraham cyst is seen. No mass is seen. No aneurysm is noted. US/US extremity nonvascular IMPRESSION: A 5.0 cm in maximal diameter right popliteal fossa complex Abraham's cyst is seen.
== END 2022-10-30 14:42 | disposition home or self-care (01) ==
LOC: HO.HMGCX 14:41
PROVIDERS: PCP Internal Medicine; Visit Provider Internal Medicine
DX: M79.604 Pain in right leg (principal)
CPT/HCPCS: 76882

== ENCOUNTER 2022-12-04 07:05 | Outpatient (REF) | payer MEDICAID, SELFPAY ==
--- NOTE | ~2022-12-04 | XR_ITS ---
EXAMINATION: XR KNEE, RIGHT XR KNEE AP STANDING CLINICAL INFORMATION: Pain. COMPARISON: None available. TECHNIQUE: Lateral and axial views of the right knee were obtained. AP bilateral standing view of the knees was obtained. FINDINGS: Bones and soft tissues are normal. No fracture or dislocation is seen. There is no right knee joint effusion. Alignment is anatomic. Joint spaces are well maintained. No abnormal soft tissue calcification. XR/XR knee standing BI IMPRESSION: Normal right knee and AP bilateral knees radiographs.
--- NOTE | ~2022-12-04 | XR_ITS ---
EXAMINATION: XR KNEE, RIGHT XR KNEE AP STANDING CLINICAL INFORMATION: Pain. COMPARISON: None available. TECHNIQUE: Lateral and axial views of the right knee were obtained. AP bilateral standing view of the knees was obtained. FINDINGS: Bones and soft tissues are normal. No fracture or dislocation is seen. There is no right knee joint effusion. Alignment is anatomic. Joint spaces are well maintained. No abnormal soft tissue calcification. XR/XR knee RT 2V IMPRESSION: Normal right knee and AP bilateral knees radiographs.
== END 2022-12-04 07:06 ==
LOC: HO.HOSX 07:05
PROVIDERS: Visit Provider Physician Assistant
DX: M23.91 Unspecified internal derangement of right knee (principal)
CPT/HCPCS: 73560; 73565; 99202

== ENCOUNTER 2022-12-09 09:15 | Outpatient (REF) | payer MEDICAID, SELFPAY ==
--- NOTE | 2022-12-09 09:26 | EMG_ITS ---
Please see scanned EMG / Nerve Conduction Report. MTDD
== END 2022-12-09 09:16 | disposition home or self-care (01) ==
LOC: HO.NEURO 09:15
PROVIDERS: PCP Internal Medicine; Visit Provider Internal Medicine
DX: G56.01 Carpal tunnel syndrome, right upper limb (principal)
CPT/HCPCS: 95885; 95913

== ENCOUNTER → 2022-12-17 14:41 | Outpatient (BNVA) | payer MEDICAID, SELFPAY | PROVIDERS: PCP Internal Medicine; Referring Provider Internal Medicine; Visit Provider Internal Medicine Cardiovascular Disease | DX: R06.02 Shortness of breath (principal); E78.5 Hyperlipidemia, unspecified; F17.210 Nicotine dependence, cigarettes, uncomplicated; Z71.6 Tobacco abuse counseling | CPT/HCPCS: 99212 ==

== ENCOUNTER → 2022-12-24 14:51 | Outpatient (REF) | payer MEDICAID, SELFPAY ==
--- NOTE | 2022-12-24 14:53 | CA_ITS ---
Transthoracic Echocardiogram Patient (Last, First, Middle): LYNNE LIVINGSTON L Gender: Female Date of : 1985 Age: 37 Procedure Date: 12/24/2022 Procedure Type: Transthoracic Echocardiogram Location: OP Height: 162.56 cm Weight: 63.5 kg BSA: 1.68 m2 Heart Rate: bpm BP: 110 / 64 mmHg Stave Hewer: DESIRAE Referring MD: Mohit Harrison MD Symptoms: E78.5 - Hyperlipidemia, unspecified Study Quality: Adequate ECG Rhythm: Sinus Conclusions: - The left ventricular systolic function is normal. The calculated ejection fraction is 60% by biplane method. - LV peak GLS -19.4%. - Evidence suggests grade II (moderate) diastolic dysfunction. - The basal inferior and basal inferolateral segments are hypokinetic (not very clear on images). - There is mild aortic valve regurgitation. - There is mild mitral valve regurgitation. - There is mild tricuspid valve regurgitation. - Mild pulmonary hypertension is present. Findings Left Ventricle Normal left ventricular cavity size. There is normal left ventricular wall thickness. The left ventricular systolic function is normal. The calculated ejection fraction is 60% by biplane method. E/E prime ratio is >15, consistent with elevated filling pressures. Evidence suggests grade II (moderate) diastolic dysfunction. LV peak GLS -19.4%. Wall Motion Rest Echo Findings The basal inferior and basal inferolateral segments are hypokinetic. Right Ventricle There is normal right ventricular systolic function. Top normal size. Atria The left atrium is moderately dilated. The right atrium is mildly dilated. Aortic Valve There is a normal trileaflet aortic valve. There is no aortic valve stenosis. There is mild aortic valve regurgitation. Mitral Valve The mitral valve appears normal. There is mild mitral valve regurgitation. There is no mitral valve stenosis. Slight diastolic MR noted. Pulmonic Valve The pulmonic valve is likely normal. Tricuspid Valve There is mild tricuspid valve regurgitation. The right ventricular systolic pressure is 50 mmHg. Mild pulmonary hypertension is present. Great Vessels The asc aorta is normal in size. Venous The inferior vena cava is mildly dilated and collapses less than 50% with inspiration. Pericardium/Pleural There is no evidence of pericardial effusion. Prior Study Comparison Changes noted compared to prior study dated: 03/27/2021. previously reported as normal. Measurements 2D Linear Measurements IVSd: 0.85 0.6-0.9/0.6-1.0 cm LVIDd: 4.92 3.9-5.3/4.2-5.9 cm LVIDd Index: 2.93 2.4-3.2/2.2-3.1 cm/m2 LVIDs: 3.34 2.0-3.6 cm LVPWd: 0.86 0.7-1.1 cm LA Diam: 2.80 2.7-3.8/3.0-4.0 cm LAIDs Index: 1.67 1.5-2.3 cm/m2 LV Mass: 178.96 67-162/88-224 g LV Mass Index: 106.52 43-95/49-115 g/m2 LVOT Diam: 1.80 3.0+(-)1.3 cm 2D Systolic Function EF 4C: 60.70 >55% EF 2C: 59.00 >55% EF BiP: 59.80 >55% Mitral Valve MV Pk E: 1.02 MV PK A: 0.66 MV Decel Time: 223.00 E/A: 1.50 E'Lateral: 7.18 E'Medial: 6.31 E/E' Med: 16.20 E/E' Lat: 14.20 PHT: 65.00 MVA PHT: 3.38 Decel Navarro: 4.58 Aortic Valve AoV Pk Garrett: 1.95 AoV Mn Garrett: 1.36 AoV VTI: 0.50 AoV Pk Grad: 15.00 Aov Mn Grad: 8.00 TETO Cont.VTI: 1.61 AI Pk Garrett: 4.45 AI Navarro: 2.17 LVOT LVOT Pk Garrett: 1.14 LVOT Mn Garrett: 0.84 LVOT VTI: 0.32 LVOT Pk Grad: 5.00 LVOT Mn Grad: 3.00 LVOT Diam: 1.80 LVOT Area: 2.54 Diastolic Function MV Pk E: 1.02 MV Pk A: 0.66 E/A: 1.50 E'Medial: 6.31 E/E' Med: 16.20 E' Laterial: 7.18 E/E' Lat: 14.20 Right Ventricle TAPSE (mm): 29.50 TVS' Garrett: 10.30 Tricuspid Valve TR Pk Garrett: 2.97 TR Pk Grad: 35.00 RA Press: 15.00 RVSP: 50.00 Great Vessels Aorta Sinus of Valsalva: 2.71 2.0-3.[address] Ridge: 2.19 1.7-3.4 cm Ao Asc: 2.70 2.1-3.4 cm Ao Arch: 2.50 Updated in Other Vendor System with Status of Final Alphonso Valdes MD electronically signed on 12/26/2022 12:27:53 PM with status of Final
== END ==
LOC: HO.CARD 14:51
PROVIDERS: PCP Internal Medicine; Visit Provider Internal Medicine Cardiovascular Disease
DX: I35.0 Nonrheumatic aortic (valve) stenosis (principal); E78.5 Hyperlipidemia, unspecified
CPT/HCPCS: 93306; 93356

== ENCOUNTER 2023-01-05 13:09 | Outpatient (REF) | payer MEDICAID, SELFPAY ==
--- NOTE | ~2023-01-05 | US_ITS ---
EXAMINATION: US LOWER EXTREMITY DUPLEX, BILATERAL CLINICAL INFORMATION: Hyperlipidemia, claudication TECHNIQUE: Real-time ultrasound and Doppler techniques (integrating B-mode 2-D vascular images, Doppler spectral analysis and color flow Doppler imaging) were utilized to interrogate the lower extremities. COMPARISON: None FINDINGS: RIGHT LEG: Common femoral artery: 219 cm/s, monophasic Profunda femoris artery: 174 cm/s, monophasic Superficial femoral artery (proximal): 156 cm/s, monophasic Superficial femoral artery (mid): 160 cm/s, monophasic Superficial femoral artery (distal): 141 cm/s, monophasic Popliteal artery: 85 cm/s, monophasic Posterior tibial artery: 141 cm/s, monophasic Incidentally noted well-circumscribed, avascular anechoic structure with posterior acoustic shadowing within the popliteal fossa measuring 4.8 x 1.0 x 2.2 cm consistent with a Abraham's cyst. LEFT LEG: Common femoral artery: 195 cm/s, monophasic Profunda femoris artery: 215 cm/s, monophasic Superficial femoral artery (proximal): 138 cm/s, monophasic Superficial femoral artery (mid): 138 cm/s, monophasic Superficial femoral artery (distal): 124 cm/s, monophasic Popliteal artery: 71 cm/s, Triphasic Posterior tibial artery: 160 cm/s, monophasic US/US arterial duplex LE BI IMPRESSION: 1. Mild bilateral lower extremity arterial disease based on velocity criteria. 2. Incidentally noted right popliteal fossa Abraham's cyst measuring 4.8 x 1.0 x 2.2 cm.
--- NOTE | ~2023-01-05 | US_ITS ---
EXAMINATION: US EXTRACRANIAL CAROTID DUPLEX, BILATERAL CLINICAL INFORMATION: Hyperlipidemia. Hypertension. COMPARISON: None available. TECHNIQUE: Real-time ultrasound and Doppler techniques (integrating B-mode 2-D vascular images, Doppler spectral analysis and color-flow Doppler imaging) were utilized to interrogate the extracranial carotid arteries, the vertebral arteries and proximal subclavian arteries bilaterally. The degree of stenosis is determined by criteria similar to NASCET. FINDINGS: Right Side: 1. There is no atherosclerotic plaque seen in the bifurcation/proximal ICA region. 2. The common carotid artery PSV proximally is 131 cm/s and distally 96 cm/s. 3. The proximal internal carotid artery velocities are 117 cm/s systolic and 38 cm/s diastolic. 4. The proximal external carotid artery PSV is 161 cm/s. 5. The vertebral artery shows antegrade flow. 6. The subclavian artery waveforms are normal. Left Side: 1. There is no atherosclerotic plaque seen in the bifurcation/proximal ICA region. 2. The common carotid artery PSV proximally is 149 cm/s and distally 103 cm/s. 3. The proximal internal carotid artery velocities are 121 cm/s systolic and 39 cm/s diastolic. 4. The proximal external carotid artery PSV is 73 cm/s. 5. The vertebral artery shows antegrade flow. 6. The subclavian artery waveforms are normal. US/US carotid duplex BI IMPRESSION: 1. RIGHT: Normal right internal carotid artery without atherosclerotic plaque or hemodynamically significant stenosis. 2. LEFT: Normal left internal carotid artery without atherosclerotic plaque or hemodynamically significant stenosis.
== END 2023-01-05 13:10 | disposition home or self-care (01) ==
LOC: HO.US 13:09
PROVIDERS: Visit Provider Internal Medicine Cardiovascular Disease
DX: E78.5 Hyperlipidemia, unspecified (principal); R09.89 Other specified symptoms and signs involving the circulatory and respiratory systems; I73.9 Peripheral vascular disease, unspecified
CPT/HCPCS: 93880; 93925

== ENCOUNTER → 2023-01-06 12:53 | Outpatient (BNVA) | payer MEDICAID, SELFPAY | PROVIDERS: PCP Internal Medicine; Visit Provider Anesthesiology | DX: G89.4 Chronic pain syndrome (principal); M51.36 Other intervertebral disc degeneration, lumbar region; M47.816 Spondylosis without myelopathy or radiculopathy, lumbar region | CPT/HCPCS: 99202 ==

== ENCOUNTER 2023-04-15 12:52 | Outpatient (REF) | payer MEDICAID, SELFPAY | END 2023-04-15 12:53 | disposition home or self-care (01) | LOC: HO.HOSX 12:52 | PROVIDERS: Visit Provider Physician Assistant | DX: Z13.89 Encounter for screening for other disorder (principal) ==

== ENCOUNTER 2023-09-17 14:41 | Outpatient (REF) | payer MEDICAID, SELFPAY ==
[2023-09-18 12:04] LABS: Follicle Stimulating Hormone 2.6 mIU/mL; Prolactin 13.5 ng/mL
[2023-09-24 00:13] LABS: Estradiol Ultra Sensitive 5 pg/mL
== END 2023-09-17 14:42 | disposition home or self-care (01) ==
LOC: HO.LAB 14:41
PROVIDERS: PCP Internal Medicine; Visit Provider Advanced Practice Midwife
DX: N91.2 Amenorrhea, unspecified (principal)
CPT/HCPCS: 36415; 82670; 83001; 84146

== ENCOUNTER 2023-10-12 10:13 | Outpatient (REF) | payer MEDICAID, SELFPAY | END 2023-10-12 10:14 | disposition home or self-care (01) | LOC: HO.HOSX 10:13 | PROVIDERS: Visit Provider Physician Assistant | DX: Z13.89 Encounter for screening for other disorder (principal) ==

== ENCOUNTER 2023-10-18 13:56 | Outpatient (REF) | payer MEDICAID, SELFPAY ==
[2023-10-18 18:11] LABS: Alanine Aminotransferase 35 U/L (0-31); Albumin Level 3.9 g/dL (3.5-5.0); Alkaline Phosphatase 130 U/L (39-117); Anion Gap 14 (12-20); Aspartate Amino Transferase 31 U/L (5-31); Bilirubin Total 0.2 mg/dL (0.0-1.0); Blood Urea Nitrogen 16 mg/dL (9-16); Carbon Dioxide 29 mmol/L (22-29); Chloride 100 mmol/L (96-108); Cholesterol 276 mg/dL (<200); Estimated Glomerular Filt Rate 55; Glucose Random 82 mg/dL (60-115); HDL Cholesterol 31 mg/dL (>40); Potassium 4.1 mmol/L (3.3-5.1); Sodium 139 mmol/L (135-145); Total Protein 7.6 g/dL (6.5-8.0); Triglycerides 882 mg/dL (<150)
== END 2023-10-18 13:57 | disposition home or self-care (01) ==
LOC: HO.CHCLDS 13:56
PROVIDERS: Visit Provider Internal Medicine
DX: I10 Essential (primary) hypertension (principal)
CPT/HCPCS: 36415; 80053; 80061

== ENCOUNTER 2023-10-29 13:24 | Outpatient (REF) | payer MEDICAID, SELFPAY ==
--- NOTE | ~2023-10-29 | US_ITS ---
EXAMINATION: US PELVIC AND TRANSVAGINAL CLINICAL INFORMATION: Amenorrhea, patient has not had a period in over a year. COMPARISON: CT abdomen and pelvis of May 15, 2021. TECHNIQUE: Ultrasound of the pelvis is performed using both transabdominal and transvaginal transducers along with Doppler. Transvaginal imaging is performed due to inadequate visualization transabdominally. FINDINGS: The uterus measures 5.5 x 3.0 x 3.9 cm. No discrete fibroids identified. Double wall endometrial thickness is 2 mm although visualization is limited due to uterine heterogeneity. No significant free fluid. Right ovary measures 1.8 x 1.0 x 1.0 cm, volume 1.0 mL. Left ovary measures 2.4 x 1.1 x 1.5 cm, volume 2.0 mL. Bilateral ovaries are grossly unremarkable, although visualization is limited due to bowel gas. US/US pelvic and transvaginal IMPRESSION: 1. No discrete fibroids. 2. Endometrial thickness is 2 mm although visualization is limited due to uterine heterogeneity. 3. Bilateral ovaries are grossly unremarkable, although visualization is limited due to bowel gas.
--- NOTE | ~2023-10-29 | US_ITS ---
EXAMINATION: US SOFT TISSUE OF THE NECK CLINICAL INFORMATION: Chin lump. Chronic smoker. COMPARISON: None available. TECHNIQUE: Linear transducer grayscale and color Doppler examination of the submental/submandibular area. Multiple small lymph nodes are seen in the area of concern indicated by the patient in the submental region. FINDINGS: 1.5 x 0.6 x 0.5 cm atypical right submental node with thick cortex and echogenic hilum. Left subsegmental 1.1 x 0.5 x 0.5 cm atypical lymph node with thickened cortex and echogenic hilum. Multiple subcentimeter atypical lymph nodes with examples in the submental region as follows: Right 0.6 x 0.3 x 0.3 cm, right 0.5 x 0.4 x 0.4 cm, central 0.4 x 0.3 x 0.4 cm, left 0.5 x 0.3 x 0.3 cm, and left 0.5 x 0.3 x 0.3 cm. US/US soft tiss head and/or neck IMPRESSION: Multiple atypical lymph nodes in the submental region, largest 1.5 x 0.6 x 0.5 cm as detailed above. Correlation with clinical exam recommended to determine further management. Recommend follow up ultrasound in 3 months.
== END 2023-10-29 13:25 | disposition home or self-care (01) ==
LOC: HO.US 13:24
PROVIDERS: PCP Internal Medicine; Visit Provider Advanced Practice Midwife
DX: N91.2 Amenorrhea, unspecified (principal); R22.0 Localized swelling, mass and lump, head; F17.210 Nicotine dependence, cigarettes, uncomplicated
CPT/HCPCS: 76536; 76830; 76856

== ENCOUNTER 2024-03-07 10:00 | Outpatient (REF) | payer SELFPAY ==
[2024-03-07 14:58] LABS: Alanine Aminotransferase 42 U/L (0-31); Alkaline Phosphatase 150 U/L (39-117); Anion Gap 12 (12-20); Aspartate Amino Transferase 28 U/L (5-31); Bilirubin Total 0.4 mg/dL (0.0-1.0); Blood Urea Nitrogen 13 mg/dL (9-16); Calcium 9.4 mg/dL (8.4-10.2); Carbon Dioxide 29 mmol/L (22-29); Chloride 102 mmol/L (96-108); Cholesterol 160 mg/dL (<200); Estimated Glomerular Filt Rate 52; Glucose Random 161 mg/dL (60-115); HDL Cholesterol 28 mg/dL (>40); LDL Cholesterol Calculated 62 mg/dL (<100); Sodium 139 mmol/L (135-145); Total Protein 7.2 g/dL (6.5-8.0); Triglycerides 351 mg/dL (<150)
== END 2024-03-07 10:01 | disposition home or self-care (01) ==
LOC: HO.CHCLDS 10:00
PROVIDERS: Visit Provider Internal Medicine
DX: E78.1 Pure hyperglyceridemia (principal)
CPT/HCPCS: 36415; 80053; 80061

== ENCOUNTER 2024-04-04 09:32 | Outpatient (AMB) | payer MEDICAID, SELFPAY ==
[2024-04-04 09:39] VITALS: BP 124/70; PULSE 54; BMI 29.9
--- NOTE | 2024-04-04 09:39 | MHC.OFFVIS ---
Vital Signs 04/04/24 09:39 Height 5 ft 4 in Weight 174 lb 2.643 oz BMI 29.9 BP 124/70 Blood Pressure Location Lt brachial Position Sitting Pulse 54 Intake Visit Reasons: Follow up-Abnormal Echo. 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 Allergies azithromycin [From ZITHROMAX] Allergy (Intermediate, Verified 09/17/23 15:25) HIVES Sulfa (Sulfonamide Antibiotics) [SULFA (SULFONAMIDE ANTIBIOTICS)] Allergy (Intermediate, Verified 09/17/23 15:25) HIVES morphine Allergy (Verified 09/17/23 15:25) Difficulty Breathing Medication List - Last Reconciled 04/04/24 by Mohit Harrison MD albuterol sulfate 90 mcg/actuation (Ventolin HFA) 1 - 2 puffs inhalation Q4-6H PRN atorvastatin 20 mg PO DAILY citalopram 40 mg PO DAILY clonidine HCl 0.2 mg PO BEDTIME ferrous sulfate 325 mg PO DAILY fluticasone propionate 50 mcg/actuation 2 sprays intranasal DAILY ibuprofen 600 mg PO TIDWM icosapent ethyl (Vascepa) 2 grams (2 x 1 gram) PO BID 90 days meloxicam 15 mg PO DAILY methadone 40 mg PO DAILY HPI Comments Details: Tamanna comes for follow-up after a long gap. Last time I had seen her I would advise a stress echocardiogram which never happened. Last echocardiogram has shown normal LV EF but possible wall motion abnormality basal inferior and basal inferolateral wall. She comes for follow-up of that test results. She continues to intermittent episodes of precordial chest pressure/tightness along with right neck tightness. This happens mostly at rest. She does not exercise much. Has been taking medication with much improvement in her triglycerides and LDL is well optimized at 62. [facility] Medical History History of high cholesterol Hyperlipidemia Migraine headache Intussusception Hypertension Gastroparesis Asthma Surgical History Hx of cardiac cath History of cholecystectomy History of appendectomy Social History Household Members: Children Housing: Other Housing Other:: group home Do you presently have visiting nurse or other home services: No Patient Tobacco Use Status: Current everyday Tobacco user Tobacco use type: Cigarette Cigarettes Per Day: 10 Substance Use Type: Marijuana service: No Current occupational status: employed Review [employer] Systems Const Denies chills, Reports fatigue, Denies fever(s), Denies frequent falls, Denies weakness, Denies weight gain and Denies weight loss ENT Denies dizziness Card Denies chest pain, Denies leg edema, Denies lightheadedness, Denies palpitations, Denies dyspnea, Denies dyspnea on exertion, Denies orthopnea and Denies other (loss of consciousness) Resp Denies cough, Denies dyspnea and Denies dyspnea on exertion GI Denies hematochezia and Denies change in stool character Musc Denies abnormal gait, Denies muscle weakness, Denies numbness, Denies radiating pain into limb and Denies tingling Neuro Denies abnormal gait, Denies dizziness, Denies frequent falls, Denies numbness, Denies tingling and Denies weakness Endo Reports fatigue and Denies palpitations Physical Exam Vital Signs: Last Vital Signs Pulse 54 04/04/24 09:39 BP 124/70 04/04/24 09:39 BMI result Body Mass Index 29.9 Const General: cooperative, comfortable, no acute distress, alert and awake Nutritional Appearance: average body habitus Orientation/consciousness: patient oriented x3 Limitations: no limitations Neck Neck: Yes trachea midline, Yes supple and Yes no JVD Resp Effort & Inspection: normal respiratory effort Auscultation: clear to auscultation bilaterally and diminished lung sounds Cardio Jugular venous distension: no JVD Palpation: normal PMI Rate: regular rate Rhythm: regular rhythm Heart sounds: S1 normal heart sound present, S2 normal heart sound present, no click, no gallops and Murmur heart sound present systolic early Bruits: carotid bruit GI Auscultation: normal bowel sounds Skin General skin exam: no rashes or lesions noted Neuro General: patient oriented x3 and no focal motor deficits Extrem General: Yes no clubbing, cyanosis or edema Office Procedures EKG Details: EKG shows sinus bradycardia with nonspecific T-wave changes [place] [id number], Complete Assessment & Plan Assessment & Plan (1) Atypical chest pain: Code(s): R07.89 - Other chest pain Category: Medical Plan: Atypical chest pain in this young woman with marked hyperlipidemia with family history. Myocardial ischemia needs to be ruled out especially given last echocardiogram showed possible wall motion apneic basal inferior inferolateral wall. Likelihood of coronary artery disease low but possible. Would suggest exercise myocardial perfusion imaging which may need to be converted to vasodilating myocardial perfusion imaging given her limited exercise capacity. This will be scheduled in near future. Continue aggressive lipid modification. Advise diet modification with reduction overall sugar intake. Shows understanding. Follow-up lipid panel after aggressive diet modification 6 months time to target goal triglycerides less than 200 mg/dL. Her triglycerides remain elevated can consider addition of fenofibrate through your office. Will follow up in the clinic in 2 months time, sooner p.r.n.. Thank you for allowing me to partake in her care Coding Level of Care Code Est Pt Level 3 (87156) Diagnoses Atypical chest pain R07.89 CPT Codes EKG - CPT: 31454-[id number], Complete ([id number])
== END 2024-04-04 10:04 | disposition home or self-care (01) ==
PROVIDERS: PCP Internal Medicine; Visit Provider Internal Medicine Cardiovascular Disease
DX: R07.89 Other chest pain (principal)
CPT/HCPCS: 93010; 99213

== ENCOUNTER → 2024-04-04 09:32 | Outpatient (BNVA) | payer MEDICAID, SELFPAY | PROVIDERS: PCP Internal Medicine; Visit Provider Internal Medicine Cardiovascular Disease | DX: R07.89 Other chest pain (principal) | CPT/HCPCS: 93005; 99212 ==

== ENCOUNTER 2024-04-11 09:38 | Outpatient (REF) | payer MEDICAID, SELFPAY ==
--- NOTE | ~2024-04-11 | XR_ITS ---
EXAMINATION: XR ABDOMEN COMPLETE CLINICAL INDICATION: Constipation, history of intussusception and 3 months of constipation, intermittent abdominal pain, hypoactive bowel sounds, concern for obstruction. COMPARISON: Abdomen 10/06/2021, CT abdomen and pelvis 08/14/2021. TECHNIQUE: 3 views of the abdomen. FINDINGS: Large amount of stool in the colon. Surgical clips right upper quadrant. Slight leftward curvature of the lumbar spine. No abnormally dilated loops of bowel to suggest obstruction. XR/XR abdomen min 2V IMPRESSION: Large amount of stool in the colon. Nonobstructive bowel gas pattern.
== END 2024-04-11 09:39 | disposition home or self-care (01) ==
LOC: HO.HHCX 09:38
PROVIDERS: Visit Provider Registered Nurse
DX: K59.00 Constipation, unspecified (principal)
CPT/HCPCS: 74019

== ENCOUNTER 2024-07-12 10:44 | Outpatient (REF) | payer MEDICAID, SELFPAY ==
[2024-07-12 12:35] LABS: Thyroid Stimulating Hormone 2.21 uIU/mL (0.32-4.0)
== END 2024-07-12 10:45 | disposition home or self-care (01) ==
LOC: HO.10HDL 10:44
PROVIDERS: Visit Provider Internal Medicine Gastroenterology
DX: K59.00 Constipation, unspecified (principal)
CPT/HCPCS: 36415; 84443